=== PATIENT | female | born 1935 | race Caucasian/White ===

== ENCOUNTER 2020-09-16 11:05 | Emergency (ER) | payer MEDICARE, OTHER ==
[~2020-09-16] VITALS: Ht 160 cm; Wt 95.2 kg
[~2020-09-16 11:05] MED LIST: ALBU90OI INH; AZIT250 PO; BENZ100A PO; BUDE6HFA INH; FLUTICASONE 50 MCG INH; GUAI600T33 PO; HYDCHL25 PO; IRBE150 PO; LETR2.5 PO; LEVFLO500 PO; METF500 PO; OMEP20ER PO; Verapamil ER300 MG PO
[2020-09-16] MEDS ORDERED: CELE200 PO (12:45)
[2020-09-16] MEDS ORDERED: LORA10ER PO (12:46)
[2020-09-16] MEDS ORDERED: Benicar40 MG PO (12:47)
[2020-09-16] MEDS ORDERED: BACL10 PO (12:49)
[2020-09-16 12:50] LABS: BASOPHILS ABSOLUTE AUTO 0.03 K/mm3 (0.00-0.23); BASOPHILS PERCENT AUTO 0 % (0-2); EOSINOPHILS ABSOLUTE AUTO 0.19 K/mm3 (0.00-0.68); EOSINOPHILS PERCENT AUTO 3 % (0-6); Hematocrit 36.1 % (33.0-51.0); Hemoglobin 12.5 g/dL (11.5-16.0); IMMATURE GRAN ABSOLUTE AUTO 0.02 K/mm3 (0.00-0.10); IMMATURE GRAN PERCENT AUTO 0 % (0-1); LYMPHOCYTES ABSOLUTE AUTO 2.27 K/mm3 (0.84-5.20); LYMPHOCYTES PERCENT AUTO 30 % (21-46); MONOCYTES ABSOLUTE AUTO 0.63 K/mm3 (0.16-1.47); MONOCYTES PERCENT AUTO 8 % (4-13); Mean Corpuscular HGB 30.6 pg (26.0-34.0); Mean Corpuscular HGB Conc 34.6 g/dL (31.5-36.5); Mean Corpuscular Volume 89 fL (80-100); Mean Platelet Volume 9.3 fL (9.1-12.4); NEUTROPHILS ABSOLUTE AUTO 4.42 K/mm3 (1.96-9.15); NEUTROPHILS PERCENT AUTO 59 % (41-73); Platelet Count 290 K/mm3 (150-400); RDW Coefficient Variation 12.5 % (11.7-14.2); RDW Standard Deviation 40.6 fL (35.1-46.3); Red Blood Cell Count 4.08 M/mm3 (3.80-5.20); White Blood Cell Count 7.56 K/mm3 (4.00-11.30)
[2020-09-16] MEDS ORDERED: PROBIOTIC1 EA13 PO (12:50)
[2020-09-16] MEDS ORDERED: MAGNESIUM GLU27.5 M1 PO (12:50)
[2020-09-16] MEDS ORDERED: MELATONIN5 M1 PO (12:51)
[2020-09-16] MEDS ORDERED: CO Q10100 MG PO (12:51)
[2020-09-16 13:07] LABS: Alanine Aminotransfer (ALT/SGP 36 U/L (12-78); Albumin, Blood 3.8 g/dL (3.4-5.0); Alk Phos 56 U/L (50-136); Anion Gap 9 mmol/L (6-16); Aspartate Aminotrans (AST/SGOT 20 U/L (12-37); Bilirubin, Total 0.5 mg/dL (0.1-1.0); Blood Urea Nitrogen 25 mg/dL (8-24); Bun/Creatinine Ratio 34.6 (12.0-20.0); CO2, Blood 25 mmol/L (21-32); Calcium, Blood 9.4 mg/dL (8.5-10.1); Chloride, Blood 98 mmol/L (98-108); Creatinine, Blood 0.72 mg/dL (0.40-1.00); Globulin, Blood 3.8 g/dL (2.2-4.0); Glomerular Filtration Rate >60 (60-); Glucose, Blood 167 mg/dL (70-99); Potassium, Blood 4.6 mmol/L (3.5-5.5); Sodium, Blood 132 mmol/L (136-145); Total Protein, Blood 7.6 g/dL (6.4-8.2); Troponin I <0.015 ng/mL (0.000-0.040)
== END 2020-09-16 13:59 | disposition home or self-care (01) ==
LOC: ER 11:05
PROVIDERS: Emergency Medicine
DX: I10 Essential (primary) hypertension (principal); K21.9 Gastro-esophageal reflux disease without esophagitis; Z88.2 Allergy status to sulfonamides; Z88.7 Allergy status to serum and vaccine; Z79.899 Other long term (current) drug therapy
CPT/HCPCS: 36415; 80053; 84484; 85025; 93005; 93010; 99284-25

== ENCOUNTER 2020-10-20 12:37 | Emergency (ER) | payer MEDICARE, OTHER ==
[~2020-10-20] VITALS: Ht 160 cm; Wt 90.7 kg
[~2020-10-20 12:37] MED LIST changes: +BACL10 PO; +Benicar40 MG PO; +CELE200 PO; +CO Q10100 MG PO; +LORA10ER PO; +MAGNESIUM GLU27.5 M1 PO; +MELATONIN5 M1 PO; +PROBIOTIC1 EA13 PO
[2020-10-20 13:40] LABS: BASOPHILS ABSOLUTE AUTO 0.04 K/mm3 (0.00-0.23); BASOPHILS PERCENT AUTO 1 % (0-2); EOSINOPHILS ABSOLUTE AUTO 0.34 K/mm3 (0.00-0.68); EOSINOPHILS PERCENT AUTO 4 % (0-6); Hematocrit 36.1 % (33.0-51.0); Hemoglobin 12.3 g/dL (11.5-16.0); IMMATURE GRAN ABSOLUTE AUTO 0.02 K/mm3 (0.00-0.10); IMMATURE GRAN PERCENT AUTO 0 % (0-1); LYMPHOCYTES ABSOLUTE AUTO 2.97 K/mm3 (0.84-5.20); LYMPHOCYTES PERCENT AUTO 38 % (21-46); MONOCYTES ABSOLUTE AUTO 0.64 K/mm3 (0.16-1.47); MONOCYTES PERCENT AUTO 8 % (4-13); Mean Corpuscular HGB 29.8 pg (26.0-34.0); Mean Corpuscular HGB Conc 34.1 g/dL (31.5-36.5); Mean Corpuscular Volume 87 fL (80-100); Mean Platelet Volume 9.3 fL (9.1-12.4); NEUTROPHILS ABSOLUTE AUTO 3.87 K/mm3 (1.96-9.15); NEUTROPHILS PERCENT AUTO 49 % (41-73); Platelet Count 323 K/mm3 (150-400); RDW Coefficient Variation 12.8 % (11.7-14.2); RDW Standard Deviation 41.2 fL (35.1-46.3); Red Blood Cell Count 4.13 M/mm3 (3.80-5.20); White Blood Cell Count 7.88 K/mm3 (4.00-11.30)
[2020-10-20 14:02] LABS: Alanine Aminotransfer (ALT/SGP 37 U/L (12-78); Albumin/Globulin Ratio 1.1 (0.8-1.8); Alk Phos 53 U/L (50-136); Anion Gap 6 mmol/L (6-16); Aspartate Aminotrans (AST/SGOT 31 U/L (12-37); Bilirubin, Total 0.5 mg/dL (0.1-1.0); Blood Urea Nitrogen 24 mg/dL (8-24); Bun/Creatinine Ratio 27.6 (12.0-20.0); CO2, Blood 28 mmol/L (21-32); Calcium, Blood 9.5 mg/dL (8.5-10.1); Chloride, Blood 95 mmol/L (98-108); Creatinine, Blood 0.87 mg/dL (0.40-1.00); Globulin, Blood 3.6 g/dL (2.2-4.0); Glomerular Filtration Rate >60 (60-); Glucose, Blood 132 mg/dL (70-99); Potassium, Blood 4.9 mmol/L (3.5-5.5); Sodium, Blood 129 mmol/L (136-145); Total Protein, Blood 7.6 g/dL (6.4-8.2)
== END 2020-10-20 17:03 | disposition home or self-care (01) ==
LOC: ER 12:37
PROVIDERS: Physician Assistant
DX: I11.0 Hypertensive heart disease with heart failure (principal); I50.9 Heart failure, unspecified; K21.9 Gastro-esophageal reflux disease without esophagitis; Z79.84 Long term (current) use of oral hypoglycemic drugs; Z87.891 Personal history of nicotine dependence
CPT/HCPCS: 36415; 71046; 80053; 83880; 84484; 85025; 93005; 93010; 99284-25

== ENCOUNTER 2021-06-03 09:15 | Emergency (ER) | payer MEDICARE, OTHER ==
[~2021-06-03] VITALS: Ht 160 cm; Wt 95.2 kg
[~2021-06-03 09:15] MED LIST changes: +ACET500 PO; +AMLO10 PO; +APAP500 MG PO; +ASCO500 PO; +ASPI81CH PO; +B-COMPLEX WITH1 EAC2 PO; +CARV25 PT; +FERROUS GLUCON324 M7 PO; +FOLI1 PO; +GLIP5 PO; +HYDR100 PO; +ISOSORBIDE MONO30 MG PO; +MAGNESIUM OXID500 MG PO; +METO25ER PO; +MONT10T PO; +Midodrine HCl2.5 MG PO; +POTASSIUM GLUC500 M1 PO; +TICA90TA PO; +TORS10 PO; +VITAMIN D5000 UNIT PO
== END 2021-06-03 11:55 | disposition home or self-care (01) ==
LOC: ER 09:15
DX: S01.112A Laceration without foreign body of left eyelid and periocular area, initial encounter (principal); I11.0 Hypertensive heart disease with heart failure; I50.9 Heart failure, unspecified; J44.9 Chronic obstructive pulmonary disease, unspecified; E11.9 Type 2 diabetes mellitus without complications; Z88.2 Allergy status to sulfonamides; Z88.7 Allergy status to serum and vaccine; Z79.899 Other long term (current) drug therapy; Z79.82 Long term (current) use of aspirin; Z79.84 Long term (current) use of oral hypoglycemic drugs; W01.0XXA Fall on same level from slipping, tripping and stumbling without subsequent striking against object, initial encounter; Y92.000 Kitchen of unspecified non-institutional (private) residence as the place of occurrence of the external cause
CPT/HCPCS: 12013; 70450; 99284-25

== ENCOUNTER → 2021-06-09 | Outpatient (CLI) | payer MEDICARE, OTHER ==
[2021-06-09 20:31] LABS: BASOPHILS ABSOLUTE AUTO 0.03 K/mm3 (0.00-0.23); BASOPHILS PERCENT AUTO 1 % (0-2); EOSINOPHILS ABSOLUTE AUTO 0.44 K/mm3 (0.00-0.68); EOSINOPHILS PERCENT AUTO 7 % (0-6); Hematocrit 32.4 % (33.0-51.0); Hemoglobin 10.8 g/dL (11.5-16.0); IMMATURE GRAN ABSOLUTE AUTO 0.02 K/mm3 (0.00-0.10); IMMATURE GRAN PERCENT AUTO 0 % (0-1); LYMPHOCYTES ABSOLUTE AUTO 1.59 K/mm3 (0.84-5.20); LYMPHOCYTES PERCENT AUTO 26 % (21-46); MONOCYTES ABSOLUTE AUTO 0.63 K/mm3 (0.16-1.47); MONOCYTES PERCENT AUTO 10 % (4-13); Mean Corpuscular HGB 28.5 pg (26.0-34.0); Mean Corpuscular HGB Conc 33.3 g/dL (31.5-36.5); Mean Corpuscular Volume 86 fL (80-100); Mean Platelet Volume 9.9 fL (9.1-12.4); NEUTROPHILS ABSOLUTE AUTO 3.49 K/mm3 (1.96-9.15); NEUTROPHILS PERCENT AUTO 56 % (41-73); Platelet Count 358 K/mm3 (150-400); RDW Coefficient Variation 13.8 % (11.7-14.2); RDW Standard Deviation 42.6 fL (35.1-46.3); Red Blood Cell Count 3.79 M/mm3 (3.80-5.20)
[2021-06-09 20:56] LABS: Alanine Aminotransfer (ALT/SGP 102 U/L (12-78); Albumin, Blood 2.9 g/dL (3.4-5.0); Albumin/Globulin Ratio 0.7 (0.8-1.8); Alk Phos 68 U/L (50-136); Anion Gap 11 mmol/L (6-16); Aspartate Aminotrans (AST/SGOT 49 U/L (12-37); Bilirubin, Total 0.4 mg/dL (0.1-1.0); Blood Urea Nitrogen 30 mg/dL (8-24); Bun/Creatinine Ratio 27.3 (12.0-20.0); CHOL/HDL RATIO 7.6; CO2, Blood 26 mmol/L (21-32); Calcium, Blood 9.3 mg/dL (8.5-10.1); Chloride, Blood 95 mmol/L (98-108); Cholesterol 212 mg/dL (50-200); Glomerular Filtration Rate 47 (60-); Glucose, Blood 228 mg/dL (70-99); HDL Cholesterol 28 mg/dL (>39); Low Density Lipoprotein Chol 112 mg/dL (0-110); Potassium, Blood 3.5 mmol/L (3.5-5.5); Sodium, Blood 132 mmol/L (136-145); Total Protein, Blood 6.9 g/dL (6.4-8.2); Triglycerides 359 mg/dL (30-160); Very Low Density Lipoprot Chol 71 mg/dL (6-32)
== END | disposition home or self-care (01) ==
LOC: LAB HH 19:43
PROVIDERS: Family Medicine
DX: I10 Essential (primary) hypertension (principal); E11.9 Type 2 diabetes mellitus without complications; E78.5 Hyperlipidemia, unspecified
CPT/HCPCS: 80053; 80061; 83036; 84443; 85025

== ENCOUNTER 2021-11-04 08:20 | Inpatient (IN) | payer MEDICARE, OTHER ==
[~2021-11-04] VITALS: Ht 160 cm; Wt 88.4 kg
[~2021-11-04 08:20] MED LIST changes: +B-COMPLEX WITH1 EACH PO; +LISI5 PO; +METFORMIN HCL500 M2 PO
[2021-11-04 08:43] LABS: Base Excess Venous -3.8 mmol/L; Bicarbonate Venous 21.3 mmol/L (24.0-30.0); PCO2 Venous 47.1 mmHg (38-42); PO2 Venous 74.6 mmHg (38-42); pH Blood Venous 7.29 (7.34-7.37)
[2021-11-04 08:45] LABS: BASOPHILS ABSOLUTE AUTO 0.03 K/mm3 (0.00-0.23); BASOPHILS PERCENT AUTO 0 % (0-2); EOSINOPHILS ABSOLUTE AUTO 0.04 K/mm3 (0.00-0.68); EOSINOPHILS PERCENT AUTO 0 % (0-6); Hematocrit 21.4 % (33.0-51.0); IMMATURE GRAN ABSOLUTE AUTO 0.04 K/mm3 (0.00-0.10); IMMATURE GRAN PERCENT AUTO 0 % (0-1); LYMPHOCYTES ABSOLUTE AUTO 1.96 K/mm3 (0.84-5.20); LYMPHOCYTES PERCENT AUTO 16 % (21-46); MONOCYTES ABSOLUTE AUTO 0.59 K/mm3 (0.16-1.47); MONOCYTES PERCENT AUTO 5 % (4-13); Mean Corpuscular HGB 29.9 pg (26.0-34.0); Mean Corpuscular HGB Conc 32.7 g/dL (31.5-36.5); Mean Corpuscular Volume 92 fL (80-100); Mean Platelet Volume 9.4 fL (9.1-12.4); NEUTROPHILS ABSOLUTE AUTO 9.38 K/mm3 (1.96-9.15); NEUTROPHILS PERCENT AUTO 78 % (41-73); Platelet Count 381 K/mm3 (150-400); RDW Coefficient Variation 13.8 % (11.7-14.2); RDW Standard Deviation 45.4 fL (35.1-46.3); Red Blood Cell Count 2.34 M/mm3 (3.80-5.20); White Blood Cell Count 12.04 K/mm3 (4.00-11.30)
[2021-11-04 09:11] LABS: Albumin, Blood 3.1 g/dL (3.4-5.0); Bilirubin, Total 0.7 mg/dL (0.1-1.0); Bun/Creatinine Ratio 38.6 (12.0-20.0); Calcium, Blood 8.2 mg/dL (8.5-10.1); Creatinine, Blood 0.78 mg/dL (0.40-1.00); Globulin, Blood 3.2 g/dL (2.2-4.0); Magnesium, Blood 1.6 mg/dL (1.6-2.4); Potassium, Blood 4.9 mmol/L (3.5-5.5); Total Protein, Blood 6.3 g/dL (6.4-8.2)
[2021-11-04 09:26] LABS: Influenza A, PCR NEGATIVE (NEGATIVE); Influenza B, PCR NEGATIVE (NEGATIVE); Resp Syncytial Virus, PCR NEGATIVE (NEGATIVE); SARS-Cov-2 (COVID-19) PCR, MMC NEGATIVE (NEGATIVE)
--- NOTE | 2021-11-04 13:10 | NUR ---
PT ADMITTED TO ICU 10 FROM ER. PT COMES UP ON BIPAP 13/5 FIO2 25%. SPO2 IN THE 90'S. PT LIKES THE BIPAP TO HELP WITH WOB. GETS SOB WITH EXERTION. HAS ONE UNIT OF PRBC'S RUNNING AT 100ML/HR. LS DIM WITH CRACKLES IN BASES. BNP OVER 1200. PT WILL GET A DOSE OF LASIX AFTER UNIT OF BLOOD. STATES SHE HAS 7/10 SHARP PAIN TO LUQ. TROPONIN ELEVATED. DR. MABRY HERE TO SEE PT. EKG DONE AND HANDED TO DR. MABRY. DR. MABRY EVALUATED PT AND BELIEVES CARDIAC PRESENTATION IS RELATED TO GI BLEED AND ANEMIA. DR. ALEGRIA WAS CONSULTED BY ER. PT IS NOW HYPERTENSIVE. A/O X4. USES CALL LIGHT APPROPRIATELY. NO SIGN OF DISTRESS AT THE MOMENT.
[2021-11-04 16:14] LABS: Hematocrit 25.9 % (33.0-51.0); Hemoglobin 8.8 g/dL (11.5-16.0)
--- NOTE | 2021-11-04 17:59 | NUR ---
SUMMARY PT RESTING IN BED. A/O X4. SINCE BLOOD TRANSFUSION PT HAS DENIES LUQ PAIN. H&H STABLE AT LAST DRAW. NO N/V. PT HAD A MEDIUM MAROON SEMI LOOSE BM ON BSC. PT DENIES DIZZINESS WITH ACTIVITY. SOB SEEMS TO BE IMPROVED AND DOES NOT DESAT WITH ACTIVITY. PT IS ONE PERSON MINIMAL ASSIST TO BSC. USES CALL LIGHT APPROPRIATELY. DR. MABRY BELIEVES CARDIAC PRESENTATION IS D/T ANEMIA. AWAITING DR. ALEGRIA'S CONSULTATION. NO SIGN OF DISTRESS AT THE MOMENT. CALL LIGHT IN REACH.
--- NOTE | 2021-11-04 19:33 | NUR ---
CALLED [facility], [facility], [facility], [facility], [facility], [facility] AND [facility] TO TRY TO GET THIS PT TRANSFERRED. ALL FACILITIES ARE AT MAX CAPACITY AND NOT TAKING TRANSFERS AT THIS TIME. DR. VERENICE APODACA.
--- NOTE | 2021-11-04 21:45 | NUR ---
PT HAD A 24 BEAT RUN OF VENTRICULAR TACHYCARDIA, ASYMPTOMATIC. SHE HAS ALSO BEEN HYPERTENSIVE. SPOKE TO DR CALDERA. ORDERS GIVEN FOR PT HOME DOSE OF TOPROL AND 2G MAGNESIUM.
--- NOTE | 2021-11-04 22:30 | NUR ---
PT UNABLE TO VOID. REYNA CATHETER PLACED USING STERILE TECHNIQUE. PT HAD 350 OF CLEAR YELLOW URINE OUT W/PLACEMENT. PT TOLERATED PROCEDURE WELL.
[2021-11-05 04:21] LABS: Hemoglobin 8.2 g/dL (11.5-16.0); Mean Corpuscular HGB 29.8 pg (26.0-34.0); Mean Corpuscular HGB Conc 34.2 g/dL (31.5-36.5); Mean Platelet Volume 9.3 fL (9.1-12.4); Platelet Count 321 K/mm3 (150-400); RDW Coefficient Variation 14.6 % (11.7-14.2); RDW Standard Deviation 45.6 fL (35.1-46.3); Red Blood Cell Count 2.75 M/mm3 (3.80-5.20)
[2021-11-05 04:24] LABS: Mean Corpuscular Volume 87 fL (80-100)
[2021-11-05 04:49] LABS: Bun/Creatinine Ratio 37.9 (12.0-20.0); Calcium, Blood 9.1 mg/dL (8.5-10.1); Creatinine, Blood 1.03 mg/dL (0.40-1.00); Potassium, Blood 4.3 mmol/L (3.5-5.5)
[2021-11-05 06:07] LABS: Source, Urine Foley catheter
--- NOTE | 2021-11-05 06:08 | NUR ---
SHIFT SUMMERY PT IS ALERT AND ORIENTED, VSS W/NO ACTIVE BLEEDING OVERNIGHT. PROTONIX DRIP INFUSING. PT HAS NO HAD NO COMPLAINTS OF CHEST PAIN/PRESSURE DURING THIS SHIFT.
[2021-11-05 06:23] LABS: Appearance, Urine Hazy (Clear); Bilirubin, Urine Neg (Neg); Blood, Urine 1+ (Neg); Color, Urine Yellow (P-Yellow); Glucose Qualitative, Urine 3+ (Neg); Ketones, Urine 1+ (Neg); Leukocyte Esterase, Urine 3+ (Neg); Nitrite, Urine Neg (Neg); Protein, Urine Neg (Neg); Urobilinogen, Urine NORM (Normal)
[2021-11-05 06:50] LABS: Bacteria Many /hpf; Red Blood Cells, Urine 0-2 /hpf (0-2); Squamous Epithelial Cells Few /hpf (Few); White Blood Cells, Urine 25-50 /hpf (0-5)
[2021-11-05] MEDS ORDERED: BACL10 PO (13:54)
[2021-11-05] MEDS ORDERED: CELE200 PO (13:58)
[2021-11-05] MEDS ORDERED: Vitamin D1000 UNI1 PO (13:59)
[2021-11-05] MEDS ORDERED: LORA10ER PO (14:00)
[2021-11-05] MEDS ORDERED: HYDR100 PO (14:00)
[2021-11-05] MEDS ORDERED: LOSA50 PO (14:01)
[2021-11-05] MEDS ORDERED: MIDO5 PO (14:02)
[2021-11-05] MEDS ORDERED: REPATHA SU140 MG/1 M SC (14:04)
--- NOTE | 2021-11-05 18:31 | NUR ---
SUMMARY PT A/O X4. DENIES PAIN OR N/V TODAY. HAS NOT HAD BM TODAY. ON 3L NC. ABLE TO GET UP TO CHAIR WITHOUT ISSUE. DR. ALEGRIA IN TO SEE PT TODAY. PT ADVANCED TO ADA CARDIAC DIET. TOLERATING MEALS. NO SIGN OF DISTRESS. MONITORING PT UNTIL SCOPE TEAM IS AVAILABLE OR A TRANSFER BED IS AVAILABLE. PT WOULD PREFER TO STAY IN [place].
[2021-11-06 04:22] LABS: Hematocrit 23.4 % (33.0-51.0); Hemoglobin 7.6 g/dL (11.5-16.0); Mean Corpuscular HGB 29.3 pg (26.0-34.0); Mean Corpuscular HGB Conc 32.5 g/dL (31.5-36.5); Mean Corpuscular Volume 90 fL (80-100); Mean Platelet Volume 9.1 fL (9.1-12.4); Platelet Count 302 K/mm3 (150-400); RDW Standard Deviation 48.3 fL (35.1-46.3); Red Blood Cell Count 2.59 M/mm3 (3.80-5.20); White Blood Cell Count 8.92 K/mm3 (4.00-11.30)
[2021-11-06 04:32] LABS: Bun/Creatinine Ratio 33.3 (12.0-20.0); Calcium, Blood 8.9 mg/dL (8.5-10.1); Creatinine, Blood 1.14 mg/dL (0.40-1.00)
--- NOTE | 2021-11-06 05:52 | NUR ---
SHIFT SUMMERY PT IS ALERT AND ORIENTED X4, PLEASANT-ABLE TO MAKE NEEDS KNOWN. SHE HAS HAD NO BM/N/V THIS SHIFT. SHE HAS HAD NO COMPLAINTS OF CHEST PAIN/PRESSURE. NO ACUTE CHANGES OVERNIGHT.
--- NOTE | 2021-11-06 09:08 | NUR ---
DR. MABRY IN TO SEE PT. HE WANTS PT TO BE ON BETA DM AND DIURETIC D/T CARDIAC HX BUT PT HAS BEEN HYPOTENSIVE. ONE UNIT OF PRBC'S ORDERED.
--- NOTE | 2021-11-06 17:38 | NUR ---
SUMMARY PT A/O X4. DENIES CP OR PRESSURE ALL DAY. UP TO CHAIR WITH STANDBY ASSIST. PT GOT ONE UNIT OF PRBC'S TO HELP BRING HER BP UP. AFTER ONE UNIT OF PRBC'S PT WAS ABLE TO TAKE METOPROLOL AND TORSEMIDE PER DR. MABRY. BP HAS IMPROVED, SEE VS FLOWSHEET. NO BM TODAY. PT HAS TOLERATED ALL MEALS. WILL START CLEAR LIQUID DIET IN AM INCASE SHE IS ABLE TO GET AN EGD DONE. THERE IS A POSSIBILITY A GI DOC WILL BE AVAILABLE TOMORROW BUT WE WON'T KNOW UNTIL TOMORROW. NO SIGN OF DISTRESS.
--- NOTE | 2021-11-06 22:55 | NUR ---
TRANSFER OF CARE: REPORT GIVEN TO ANAMARIA BARNEY AT 2140. PATIENT TRANSFERRED BY BED TO PCU 10. PATIENT TRANSFERRED WITH 1 PERSON ASSIST TO PCU BED.
[2021-11-07 04:26] LABS: Hematocrit 26.2 % (33.0-51.0); Hemoglobin 8.7 g/dL (11.5-16.0); Mean Corpuscular HGB 29.5 pg (26.0-34.0); Mean Corpuscular HGB Conc 33.2 g/dL (31.5-36.5); Mean Corpuscular Volume 89 fL (80-100); Platelet Count 284 K/mm3 (150-400); RDW Coefficient Variation 15.6 % (11.7-14.2); Red Blood Cell Count 2.95 M/mm3 (3.80-5.20); White Blood Cell Count 7.47 K/mm3 (4.00-11.30)
[2021-11-07 05:03] LABS: Bun/Creatinine Ratio 33.3 (12.0-20.0); Calcium, Blood 8.6 mg/dL (8.5-10.1); Creatinine, Blood 1.02 mg/dL (0.40-1.00); Potassium, Blood 3.8 mmol/L (3.5-5.5)
--- NOTE | 2021-11-07 06:12 | NUR ---
SHIFT SUMMARY Assumed care of pt around 2200 as ICU xfer, I agree with previous RN's assessment. A/Ox4. Large BP discrepancy between L and R arms, L SBP 70-90, while at the same time the R SBP 120-140. Able to transfer from bed to bed with minimal assistance. Maintains over 95% on 3L NC (2L NC baseline). LS coarse RUL and clear t/o rest. Minimal dyspnea with exertion. NSR on tele in 80's. Strong +2 pulses t/o. 1+ pitting edema BLE. Mild abdominal distention, firm in nature with hypoactive bowel tones. No bloody stools this shift. Flores draining cloudy yellow urine. Patient has been on clears in the event she can get a scope today. Will report to dayshift RN.
--- NOTE | 2021-11-07 17:26 | NUR ---
SHIFT SUMMARY PT HAS BEEN RESTING IN ROOM AND NAPPED AROUND MIDDAY. PT HAS EXPRESSED SOME FRUSTRATION OVER CURRENT DIET ORDERS. PT HAS STATED THAT THEY WILL CONTINUE TO COMPLY WITH CURRENT PLAN OF CARE. ALL VITALS HAVE BEEN STABLE. PT HAS DENIED C/O PAIN OR DISCOMFORT. PT HAS BEEN ABLE TO REPOSITION SELF IN BED. PT IS HOPEFUL THAT HEMOGLOBIN WILL HOLD SO THAT THEY MAY DISCHARGE AND FOLLOW-UP AN OUTPATIENT.
[2021-11-08 04:34] LABS: Hemoglobin 9.1 g/dL (11.5-16.0); Mean Corpuscular HGB 29.1 pg (26.0-34.0); Mean Corpuscular HGB Conc 32.5 g/dL (31.5-36.5); Mean Corpuscular Volume 90 fL (80-100); Mean Platelet Volume 9.1 fL (9.1-12.4); Platelet Count 287 K/mm3 (150-400); RDW Coefficient Variation 15.1 % (11.7-14.2); RDW Standard Deviation 47.4 fL (35.1-46.3); Red Blood Cell Count 3.13 M/mm3 (3.80-5.20); White Blood Cell Count 7.88 K/mm3 (4.00-11.30)
[2021-11-08 05:00] LABS: Bun/Creatinine Ratio 31.7 (12.0-20.0); Calcium, Blood 8.8 mg/dL (8.5-10.1); Creatinine, Blood 1.01 mg/dL (0.40-1.00); Potassium, Blood 3.8 mmol/L (3.5-5.5)
--- NOTE | 2021-11-08 05:51 | NUR ---
SHIFT SUMMARY Patient was moved from room PCU 10 to 7. Reports no pain, CP/pressure. VSS. Maintains over 95% on 1L NC. SR on tele 80's. No acute changes overnight. Will report to dayshift RN.
[2021-11-08] MEDS ORDERED: LEVFLO500 PO (11:43)
--- NOTE | 2021-11-08 14:50 | NUR ---
DISCHARGE SUMMARY PT WAS TRANSPORTED BY WHEELCHAIR TO PRIVATE VEHICLE. DISCHARGE TEACHING WAS GIVEN TO PT AND SPOUSE. ALL PERSONAL BELONGINGS AND DISCHARGE INSTRUCTIONS WERE IN PT'S POSSESSION AT TIME OF DISCHARGE. ALL QUESTIONS AND CONCERNS WERE ADDRESSED PRIOR TO DISCHARGE. PT IS AWARE OF THEIR APPOINTMENT WITH GASTROENTEROLOGY THAT WAS MADE PRIOR TO DISCHARGE.
== END 2021-11-08 14:17 | disposition home health service (06) | DRG 377 ==
LOC: ER 08:20 → ICUW 10:36 → PCU 11-06 22:06
PROVIDERS: Internal Medicine; Student in an Organized Health Care Education/Training Program; ADMIT Internal Medicine
PROC: 30233N1 Transfusion of Nonautologous Red Blood Cells into Peripheral Vein, Percutaneous Approach (ICD-10-PCS; principal; 2021-11-04)
DX: K92.1 Melena (principal); I21.A1 Myocardial infarction type 2; I50.43 Acute on chronic combined systolic (congestive) and diastolic (congestive) heart failure; J96.21 Acute and chronic respiratory failure with hypoxia; R57.8 Other shock; D62 Acute posthemorrhagic anemia; I42.8 Other cardiomyopathies; E87.4 Mixed disorder of acid-base balance; Z20.822 Contact with and (suspected) exposure to COVID-19; E78.5 Hyperlipidemia, unspecified; I25.10 Atherosclerotic heart disease of native coronary artery without angina pectoris; K21.9 Gastro-esophageal reflux disease without esophagitis; D50.9 Iron deficiency anemia, unspecified; I11.0 Hypertensive heart disease with heart failure; I50.83 High output heart failure; E11.9 Type 2 diabetes mellitus without complications; Z95.5 Presence of coronary angioplasty implant and graft; Z88.2 Allergy status to sulfonamides; Z88.7 Allergy status to serum and vaccine; Z79.4 Long term (current) use of insulin; Z87.891 Personal history of nicotine dependence; Z90.12 Acquired absence of left breast and nipple; Z85.3 Personal history of malignant neoplasm of breast; Z86.010 Personal history of colon polyps; Z79.899 Other long term (current) drug therapy
CPT/HCPCS: 0241U; 36415; 36430; 51703; 71045; 80048; 80053; 81001; 82272; 82803; 82947; 83735; 83880; 84484; 85014; 85018; 85025; 85027; 86850; 86900; 86901; 86923; 87077; 87086; 87186; 93005; 93010; 94640; 94660; 94664; 94760; 94762; 96365; 96366; 96375; 96376; 99285-25; A9270; C9113; J0696; J1815; J1940; J2930; J3475; J7030; J7040; P9016

== ENCOUNTER 2021-12-04 11:34 | Emergency (ER) | payer MEDICARE, OTHER ==
[~2021-12-04] VITALS: Ht 160 cm; Wt 87.1 kg
[~2021-12-04 11:34] MED LIST changes: +LOSA50 PO; +MIDO5 PO; +REPATHA SU140 MG/1 M SC; +Vitamin D1000 UNI1 PO
[2021-12-04 13:05] LABS: BASOPHILS ABSOLUTE AUTO 0.03 K/mm3 (0.00-0.23); BASOPHILS PERCENT AUTO 0 % (0-2); EOSINOPHILS PERCENT AUTO 1 % (0-6); Hematocrit 31.1 % (33.0-51.0); IMMATURE GRAN ABSOLUTE AUTO 0.01 K/mm3 (0.00-0.10); IMMATURE GRAN PERCENT AUTO 0 % (0-1); LYMPHOCYTES PERCENT AUTO 16 % (21-46); MONOCYTES PERCENT AUTO 10 % (4-13); Mean Corpuscular HGB 28.2 pg (26.0-34.0); Mean Corpuscular HGB Conc 32.2 g/dL (31.5-36.5); Mean Corpuscular Volume 88 fL (80-100); Mean Platelet Volume 9.3 fL (9.1-12.4); NEUTROPHILS ABSOLUTE AUTO 4.96 K/mm3 (1.96-9.15); NEUTROPHILS PERCENT AUTO 72 % (41-73); Platelet Count 245 K/mm3 (150-400); RDW Coefficient Variation 14.9 % (11.7-14.2); RDW Standard Deviation 47.9 fL (35.1-46.3); Red Blood Cell Count 3.54 M/mm3 (3.80-5.20)
[2021-12-04 13:20] LABS: Albumin, Blood 3.7 g/dL (3.4-5.0); Albumin/Globulin Ratio 1.2 (0.8-1.8); Bilirubin, Total 0.7 mg/dL (0.1-1.0); Bun/Creatinine Ratio 29.4 (12.0-20.0); Calcium, Blood 9.4 mg/dL (8.5-10.1); Creatinine, Blood 0.95 mg/dL (0.40-1.00); Globulin, Blood 3.2 g/dL (2.2-4.0); Total Protein, Blood 6.9 g/dL (6.4-8.2)
[2021-12-04] MEDS ORDERED: BUME2 PO (18:14)
== END 2021-12-04 18:45 | disposition home or self-care (01) ==
LOC: ER 11:34
PROVIDERS: Physician Assistant
DX: I11.0 Hypertensive heart disease with heart failure (principal); I50.22 Chronic systolic (congestive) heart failure; I25.10 Atherosclerotic heart disease of native coronary artery without angina pectoris; J44.9 Chronic obstructive pulmonary disease, unspecified; E11.9 Type 2 diabetes mellitus without complications; K21.9 Gastro-esophageal reflux disease without esophagitis; Z79.84 Long term (current) use of oral hypoglycemic drugs; Z99.81 Dependence on supplemental oxygen; Z88.2 Allergy status to sulfonamides; Z88.7 Allergy status to serum and vaccine; Z79.899 Other long term (current) drug therapy
CPT/HCPCS: 36415; 71046; 80053; 83690; 83880; 84484; 85025; 93005; 93010; J1940

== ENCOUNTER → 2022-05-24 | Outpatient (CLI) | payer MEDICARE, OTHER ==
[~2022-05-24] MED LIST changes: +BUME2 PO
[2022-05-24 12:30] LABS: Creatinine, Urine Random 33.7 mg/dL (27.00-270.00); Protein, Urine Random 18.3 mg/dL (0.0-11.9); Protein/Creat Ratio, Ur Random 0.5
[2022-05-24 12:39] LABS: Creatinine Urine 33.1 mg/dL (27.00-270.00); Microalbumin, Urine Quant. 45.8 mg/L (0.000-20.000); Protein, Urine Quantitative 17.7 mg/dL (0.0-11.9)
== END ==
LOC: LAB FUT 05-18 12:35 → LAB 08:45 → LAB SHORT 08:45
PROVIDERS: Internal Medicine Nephrology
DX: N17.9 Acute kidney failure, unspecified (principal); I12.9 Hypertensive chronic kidney disease with stage 1 through stage 4 chronic kidney disease, or unspecified chronic kidney disease; E11.22 Type 2 diabetes mellitus with diabetic chronic kidney disease; I70.1 Atherosclerosis of renal artery; N18.30 Chronic kidney disease, stage 3 unspecified; D63.1 Anemia in chronic kidney disease; R76.8 Other specified abnormal immunological findings in serum; R94.5 Abnormal results of liver function studies; R94.6 Abnormal results of thyroid function studies; D51.8 Other vitamin B12 deficiency anemias; D52.8 Other folate deficiency anemias
CPT/HCPCS: 81050; 82043; 82570; 84156

== ENCOUNTER 2022-10-05 10:32 | Inpatient (IN) | payer MEDICARE, OTHER ==
[~2022-10-05] VITALS: Ht 165.1 cm; Wt 86.0 kg
[2022-10-05] MEDS ORDERED: Aspir 8181 MG PO (11:06)
[2022-10-05] MEDS ORDERED: POTA10T PO (11:08)
[2022-10-05] MEDS ORDERED: TICA90TA PO ×2 (11:08→11:09)
[2022-10-05 11:43] LABS: BASOPHILS ABSOLUTE AUTO 0.03 K/mm3 (0.00-0.23); BASOPHILS PERCENT AUTO 0 % (0-2); EOSINOPHILS ABSOLUTE AUTO 0.16 K/mm3 (0.00-0.68); EOSINOPHILS PERCENT AUTO 2 % (0-6); Hematocrit 26.7 % (33.0-51.0); Hemoglobin 9.1 g/dL (11.5-16.0); IMMATURE GRAN ABSOLUTE AUTO 0.03 K/mm3 (0.00-0.10); IMMATURE GRAN PERCENT AUTO 0 % (0-1); LYMPHOCYTES ABSOLUTE AUTO 2.97 K/mm3 (0.84-5.20); LYMPHOCYTES PERCENT AUTO 28 % (21-46); MONOCYTES ABSOLUTE AUTO 0.77 K/mm3 (0.16-1.47); MONOCYTES PERCENT AUTO 7 % (4-13); Mean Corpuscular HGB 29.8 pg (26.0-34.0); Mean Corpuscular HGB Conc 34.1 g/dL (31.5-36.5); Mean Corpuscular Volume 88 fL (80-100); Mean Platelet Volume 9.2 fL (9.1-12.4); NEUTROPHILS ABSOLUTE AUTO 6.54 K/mm3 (1.96-9.15); NEUTROPHILS PERCENT AUTO 62 % (41-73); Platelet Count 330 K/mm3 (150-400); RDW Coefficient Variation 13.3 % (11.7-14.2); Red Blood Cell Count 3.05 M/mm3 (3.80-5.20)
[2022-10-05 12:02] LABS: Albumin, Blood 3.1 g/dL (3.4-5.0); Albumin/Globulin Ratio 0.8 (0.8-1.8); Bilirubin, Total 0.7 mg/dL (0.1-1.0); Bun/Creatinine Ratio 28.6 (12.0-20.0); Calcium, Blood 8.4 mg/dL (8.5-10.1); Creatinine, Blood 2.13 mg/dL (0.40-1.00); Potassium, Blood 4.7 mmol/L (3.5-5.5); Total Protein, Blood 7.1 g/dL (6.4-8.2)
[2022-10-05 12:10] LABS: Source, Urine Clean Catch
[2022-10-05 12:17] LABS: Appearance, Urine Cloudy (Clear); Bilirubin, Urine Neg (Neg); Blood, Urine 4+ (Neg); Color, Urine Yellow (P-Yellow); Glucose Qualitative, Urine 2+ (Neg); Ketones, Urine Neg (Neg); Leukocyte Esterase, Urine 3+ (Neg); Nitrite, Urine Neg (Neg); Protein, Urine 3+ (Neg); Specific Gravity, Urine 1.015 (1.003-1.022); Urobilinogen, Urine NORM (Normal)
[2022-10-05 12:28] LABS: Bacteria Many /hpf; Squamous Epithelial Cells Few /hpf (Few); White Blood Cells, Urine 25-50 /hpf (0-5)
[2022-10-05 12:29] LABS: Mucus Mod (0-Heavy)
[2022-10-05 14:40] LABS: Albumin, Blood 2.9 g/dL (3.4-5.0); Anion Gap 9 mmol/L (6-16); Blood Urea Nitrogen 64 mg/dL (8-24); Bun/Creatinine Ratio 28.6 (12.0-20.0); CO2, Blood 19 mmol/L (21-32); Calcium, Blood 8.6 mg/dL (8.5-10.1); Chloride, Blood 88 mmol/L (98-108); Creatinine, Blood 2.24 mg/dL (0.40-1.00); Glomerular Filtration Rate 21 (60-); Glucose, Blood 222 mg/dL (70-99); Phosphorus, Blood 3.5 mg/dL (2.5-4.9); Potassium, Blood 4.5 mmol/L (3.5-5.5); Sodium, Blood 116 mmol/L (136-145)
[2022-10-05 15:57] LABS: Potassium, Blood 4.5 mmol/L (3.5-5.5)
[2022-10-05 16:54] VITALS: BP 147/75
[2022-10-05] MEDS ORDERED: Metformin HCl750 MG PO (17:10)
[2022-10-05 18:39] LABS: Potassium, Blood 4.4 mmol/L (3.5-5.5)
--- NOTE | 2022-10-05 19:24 | NUR ---
Shift Summary: Pt arrived to room PCU 5 around 1700. Pt A/O x4. Oriented to room, unit, call light and plan of care. Denies questions. LS clear. BT postive. HR reg. Pulses palp. VSS. Pt states that she is having some cramping in her L ankle but otherwise has no pain. Blister like sores noted to groin and R buttock. Purewick cath in place. Labs were obtained per orders and critical results called to physician with new orders obtained. Report was given to night RN, no other changes since arrival to unit.
[2022-10-05 19:25] VITALS: BP 97/71
--- NOTE | 2022-10-05 20:15 | NUR ---
ASSUMED CARE AT 1900 PATIENT IS ALERT AND ORIENTED X4, CAN BE FORGETFUL AT TIMES. 02 SATS >95% ON RA, DENIES SOB. HR ST 100-110, BP STABLE. PATIENT DENIES CP/PRESSURE. DENIES N/V. PUREWICK IN PLACE, URINE IS CLOUDY YELLOW. PHOTO OF RIGHT BUTTOCKS IN CHART, RED/BLISTER AREA. PATIENT GIVEN 2 GM PO SODIUM TAB PER DR. WOO, ANOTHER 2 GM TO BE GIVEN 2 HOURS AFTER FIRST DOSE AND LABS TO BE RECHECKED AT 2200. CALL LIGHT IN REACH
[2022-10-05 22:44] VITALS: BP 77/62
[2022-10-06 03:54] VITALS: BP 140/110
[2022-10-06 04:04] LABS: BASOPHILS ABSOLUTE AUTO 0.02 K/mm3 (0.00-0.23); BASOPHILS PERCENT AUTO 0 % (0-2); EOSINOPHILS ABSOLUTE AUTO 0.15 K/mm3 (0.00-0.68); EOSINOPHILS PERCENT AUTO 2 % (0-6); Hematocrit 25.2 % (33.0-51.0); Hemoglobin 8.7 g/dL (11.5-16.0); IMMATURE GRAN ABSOLUTE AUTO 0.02 K/mm3 (0.00-0.10); IMMATURE GRAN PERCENT AUTO 0 % (0-1); LYMPHOCYTES PERCENT AUTO 36 % (21-46); MONOCYTES ABSOLUTE AUTO 0.68 K/mm3 (0.16-1.47); MONOCYTES PERCENT AUTO 8 % (4-13); Mean Corpuscular HGB 29.5 pg (26.0-34.0); Mean Corpuscular HGB Conc 34.5 g/dL (31.5-36.5); Mean Corpuscular Volume 85 fL (80-100); Mean Platelet Volume 8.9 fL (9.1-12.4); NEUTROPHILS ABSOLUTE AUTO 4.93 K/mm3 (1.96-9.15); NEUTROPHILS PERCENT AUTO 55 % (41-73); Platelet Count 308 K/mm3 (150-400); RDW Coefficient Variation 13.2 % (11.7-14.2); RDW Standard Deviation 40.8 fL (35.1-46.3); Red Blood Cell Count 2.95 M/mm3 (3.80-5.20)
--- NOTE | 2022-10-06 04:06 | NUR ---
SHIFT SUMMARY PATIENT IS ALERT AND ORIENTED X4. 02 SATS >95% ON RA, DENIES SOB. HR ST 100-115, BP STABLE. PUREWICK IN PLACE, CHANGED THIS SHIFT, CLOUDY YELLOW URINE OUTPUT. REPLACING SODIUM PER DR. WOO, SEE EMAR. INDEPENDENT WITH REPOSIITONING, ASSISTANCE PRN. MEDICATED FOR LLE PAIN, PULSES INTACT AND EXTREMITY WARM TO THE TOUCH. CALL LIGHT IN REACH
[2022-10-06 04:20] LABS: Magnesium, Blood 1.6 mg/dL (1.6-2.4)
[2022-10-06 04:35] LABS: Anion Gap 10 mmol/L (6-16); Blood Urea Nitrogen 67 mg/dL (8-24); Bun/Creatinine Ratio 27.6 (12.0-20.0); CO2, Blood 19 mmol/L (21-32); Calcium, Blood 8.7 mg/dL (8.5-10.1); Chloride, Blood 89 mmol/L (98-108); Creatinine, Blood 2.43 mg/dL (0.40-1.00); Glomerular Filtration Rate 19 (60-); Glucose, Blood 201 mg/dL (70-99); Phosphorus, Blood 3.7 mg/dL (2.5-4.9); Potassium, Blood 4.4 mmol/L (3.5-5.5); Sodium, Blood 118 mmol/L (136-145)
[2022-10-06 07:39] VITALS: BP 131/57
--- NOTE | 2022-10-06 10:11 | NUR ---
ASSUMED CARE: ASSUMED CARE OF PT APPROX 0715. PT IS A&OX4 AND SITTING UP IN CHAIR. O2 SATS >95% ON RA. PT DENIES SOB. HR ST 100-110'S. PT DENIES CP/PRESSURE. BP 130'S SYSTOLIC. PUREWICK IN PLACE DRAINING YELLOW CLOUDY URINE. PT EATING BREAKFAST INDEPENDENTLY. 1000ML FLUID RESTRICTION IN PLACE PER ORDER. PT ABLE TO MAKE NEEDS KNOWN. CALL LIGHT WITHIN REACH. NO FURTHER NEEDS AT THIS TIME.
[2022-10-06 11:49] VITALS: BP 136/79
[2022-10-06 12:45] LABS: Potassium, Blood 4.2 mmol/L (3.5-5.5)
[2022-10-06 13:48] LABS: Ferritin, Serum 246 ng/mL (8-252); Iron Serum 32 ug/dL (50-170); Percent Saturation 11.6 % (15.0-50.0); Total Iron Binding Capacity 277 ug/dL (250-450)
[2022-10-06 15:58] VITALS: BP 147/83
--- NOTE | 2022-10-06 16:40 | NUR ---
PT UPDATE TELE CALLED TO NOTIFY OF PROLONGED QT: .52. CALL PLACED TO MD MOREL. MD MOREL W/ ORDERS FOR EKG AND PHARMACY TO REVIEW MEDICATIONS FOR CAUSES. CALL PLACED TO PHARMACY, PHARMACY STATES NO MEDICATION CONCERNS ON AUG EXCEPT FOR ZOFRAN, THAT HAS NOT BEEN GIVEN. EKG IN PROGRESS.
--- NOTE | 2022-10-06 17:41 | NUR ---
SHIFT SUMMARY: PT A&OX4 THROUGHOUT SHIFT. HR MOSTLY 100-110'S, ST. SBP 130-140'S. PT DENIES CP/PRESSURE. O2 SATS >95% ON RA AT REST. PT REPORTS SOB WITH EXERTION. O2 SATS DECREASED TO 89-94% WITH EXERTION. QUICKLY IMPROVED WITH REST. PUREWICK IN PLACE DRAINING YELLOW CLOUDY URINE WITH SEDIMENT. UNASYN STARTED PER EMAR. LEFT ARM POWERGLIDE PLACED THIS SHIFT. SODIUM BEING ADMINISTERED PER EMAR, MANAGED BY MD WOO. APPROX 1640 TELEMETRY NOTIFIED THIS SN AND RAJ GRANDE OF PROLONGED QT: 0.52. MD MOREL NOTIFIED. EKG PERFORMED PER MD MOREL. MD MOREL WITH ORDERS FOR BMP AND MAGNESIUM DRAW. RESULTS PENDING. PT REPOSITIONED WITH ASSISTANCE FREQUENTLY THROUGHOUT SHIFT. 1000ML FLUID RESTRICTION IN PLACE. ABLE TO MAKE NEEDS KNOWN AND CALL APPROPRIATELY. CALL LIGHT WITHIN REACH.
[2022-10-06 18:52] LABS: Bun/Creatinine Ratio 27.3 (12.0-20.0); Creatinine, Blood 2.42 mg/dL (0.40-1.00); Magnesium, Blood 1.8 mg/dL (1.6-2.4); Potassium, Blood 4.1 mmol/L (3.5-5.5)
[2022-10-06 19:49] VITALS: BP 159/96; BP 59/96
[2022-10-06 23:27] VITALS: BP 147/79
[2022-10-07 03:09] VITALS: BP 140/70
--- NOTE | 2022-10-07 03:14 | NUR ---
SHIFT SUMMARY PT IS A&OX4, HAS BEEN FATIGUED W/ GENERALIZED WEAKNESS, AND THE PT CALLS APPROPRIATELY. AT THE START OF THE SHIFT THE PT STARTED HAVING LOWER LEG CRAMPS AND WANTED TO GET UP IN THE CHAIR. IT TOOK TWO NURSING STAFF TO GET HER STANDING UP BECAUSE SHE COULD BARELY SIT UP HERSELF. THE LEG CRAMPS WENT AWAY AFTER SITTING IN THE CHAIR AND HAVING THEM ELEVATED. PT STATES SHE HAS SOME SOB W/ EXERTION. SHE DENIES SOB AT REST, AND ANY ANGINA OR CHEST PRESSURE. SHE IS ON ROOM AIR AND ST 100 S-120 S ON TELE. SHE HAS A PROLONGED QTC AND ST ELEVATION NOTED. DR. WOO CALLED AT ABOUT 2230 AND REQUESTED AN ADDITIONAL SODIUM CHLORIDE TABLET FOR THE PT. HER BED IS IN LOW, CALL LIGHT IS IN REACH. I WILL CONTINUE TO PROVIDE CARE UNTIL HANDOFF IS GIVEN TO THE ONCOMING SHIFT RN SEE NOTES FOR ANY UPDATES.
[2022-10-07 04:02] LABS: BASOPHILS ABSOLUTE AUTO 0.03 K/mm3 (0.00-0.23); BASOPHILS PERCENT AUTO 0 % (0-2); EOSINOPHILS ABSOLUTE AUTO 0.19 K/mm3 (0.00-0.68); EOSINOPHILS PERCENT AUTO 2 % (0-6); Hematocrit 23.6 % (33.0-51.0); Hemoglobin 8.2 g/dL (11.5-16.0); IMMATURE GRAN ABSOLUTE AUTO 0.02 K/mm3 (0.00-0.10); IMMATURE GRAN PERCENT AUTO 0 % (0-1); LYMPHOCYTES ABSOLUTE AUTO 2.87 K/mm3 (0.84-5.20); LYMPHOCYTES PERCENT AUTO 35 % (21-46); MONOCYTES ABSOLUTE AUTO 0.77 K/mm3 (0.16-1.47); MONOCYTES PERCENT AUTO 9 % (4-13); Mean Corpuscular HGB Conc 34.7 g/dL (31.5-36.5); Mean Corpuscular Volume 86 fL (80-100); Mean Platelet Volume 8.7 fL (9.1-12.4); NEUTROPHILS PERCENT AUTO 53 % (41-73); Platelet Count 305 K/mm3 (150-400); RDW Coefficient Variation 13.6 % (11.7-14.2); RDW Standard Deviation 42.2 fL (35.1-46.3); Red Blood Cell Count 2.73 M/mm3 (3.80-5.20); White Blood Cell Count 8.18 K/mm3 (4.00-11.30)
[2022-10-07 04:18] LABS: Albumin, Blood 2.9 g/dL (3.4-5.0); Anion Gap 8 mmol/L (6-16); Blood Urea Nitrogen 64 mg/dL (8-24); Bun/Creatinine Ratio 25.6 (12.0-20.0); CO2, Blood 24 mmol/L (21-32); Calcium, Blood 8.8 mg/dL (8.5-10.1); Chloride, Blood 95 mmol/L (98-108); Glomerular Filtration Rate 19 (60-); Glucose, Blood 208 mg/dL (70-99); Magnesium, Blood 1.9 mg/dL (1.6-2.4); Phosphorus, Blood 3.7 mg/dL (2.5-4.9); Potassium, Blood 3.9 mmol/L (3.5-5.5); Sodium, Blood 127 mmol/L (136-145)
[2022-10-07 07:44] VITALS: BP 122/95
[2022-10-07 12:11] VITALS: BP 136/92
[2022-10-07 15:10] VITALS: BP 93/59
[2022-10-07 15:13] VITALS: BP 126/77
--- NOTE | 2022-10-07 15:18 | NUR ---
CARE ASSUMPTION / AFIB THIS RN ASSUMING CARE OF PT @ 1450. PT A&O TO SELF. PT STATING LOCATION "IN MY CHAIR AT HOME" THEN STATING "OH, NO, IN THE HOSPITAL." PT UNABLE TO STATE THE DATE, STATING "I DON'T KNOW. MUST BE AUGUST? " PT UNABLE TO STATE YEAR. PT REQUESTING MORE FLUIDS DESPITE GLASS OF WATER IN FRONT OF HER. PT REMINDED OF FLUID RESTRICTION & ENCOURAGED TO PACE SELF W/ FLUIDS. MONITOR SHOWING AFIB, HR 90s-110. VSS. NOTIFIED W/ NO NEW ORDERS AT THIS TIME. SPO2 > 92% ON RA.
--- NOTE | 2022-10-07 18:00 | NUR ---
END OF SHIFT PT A&O TO SELF. PT W/ FORGETFULNESS, STATING "[facility]" BUT THEN MOMENTS LATER SAYING "NO, I'M IN THE HOSPITAL." PT VSS. SPO2 > 92% ON RA. MONITOR SHOWING AFIB, HR 90s-110s. NOTIFIED OF CONVERSION TO AFIB. PT INCONTINENT, WEARING ATTENDS. PT 1 PERSON ASSIST OOB. PT CURRENTLY SITTING UP IN CHAIR, CHAIR ALARM ON.
[2022-10-07 20:38] VITALS: BP 85/63
[2022-10-08] VITALS (11 sets, daily range): BP systolic 79–170; BP diastolic 62–106
[2022-10-08 05:27] LABS: Hematocrit 24.8 % (33.0-51.0); Hemoglobin 8.4 g/dL (11.5-16.0)
[2022-10-08 06:09] LABS: Albumin, Blood 2.9 g/dL (3.4-5.0); Anion Gap 10 mmol/L (6-16); Blood Urea Nitrogen 73 mg/dL (8-24); Bun/Creatinine Ratio 29.9 (12.0-20.0); CO2, Blood 21 mmol/L (21-32); Calcium, Blood 9.2 mg/dL (8.5-10.1); Chloride, Blood 97 mmol/L (98-108); Creatinine, Blood 2.44 mg/dL (0.40-1.00); Glomerular Filtration Rate 19 (60-); Glucose, Blood 198 mg/dL (70-99); Magnesium, Blood 2.2 mg/dL (1.6-2.4); Phosphorus, Blood 4.4 mg/dL (2.5-4.9); Sodium, Blood 128 mmol/L (136-145)
--- NOTE | 2022-10-08 06:39 | NUR ---
SHIFT SUMMARY ASSUMED CARE OF PT AT 1900. PT IS A/OX4. HEART SOUNDS IRREGULAR. PT IN AFIB MOST OF THE NIGHT. LUNG SOUNDS DIMINISHED. PT DID NOT SLEEP WELL. DR WOO TO PT ROOM AT 0000 TO CHECK ON CONDITION. PT BP HAS BEEN SOFT THIS SHIFT. DISCUSSED CARE WITH CHARGE NURSE. PT ASYMTOMATIC.
[2022-10-08 12:09] LABS: Potassium, Blood 4.1 mmol/L (3.5-5.5)
--- NOTE | 2022-10-08 15:50 | NUR ---
Initial palliatice care consult: Alexandra is an 86 year old lady with a history of COPD, CHF, HTN, DM, HLD, acid reflux, iron deficiency anemia, CAD with 2 stents, CKD stage 4. She was admitted with hyponatremia and elevated BNP. Echo done during this admission shows EF of 19%. Pt's EF at baseline in 2021 was 40-45%. Alexandra states she lives in [place] with her . They have family in the area as well. She reports SOB, fatigue, edema nyasia nausea prior to her admission to [facility] on 10/05/22. She has been sleeping in her recliner at night recently. Alexandra's , son and DIL are at the bedside. They have many questions about the plan of care, plan for discharge and instructions for home care. Discussed disease process, disease trajectory and answered questions. 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 She enjoys canned soups and we discussed how processed foods contain large amounts of sodium. Discussed diet restrictions, CHF self care at home. Provided printed resources from the EMR on CHF, CHF diet and CKD. Alexandra's DIL volunteered to help with meal prep but wanted some guidelines for the CHF diet. Ham Boner consult ordered for additional CHF education. Discussed options for after care. Alexandra's reports he is physically unable to assist her with care needs when she gets home. If she isn't able to ambulate without assistance he would prefer that she go to a SNF for rehab. He is worried that she will end up readmitted if he can't take care of her. They are open to [facility] or would also consider a rehab facility in [place]. They havd a ramp to get into their house and no stairs in their home. They have a agronomy instructor who comes once a month. Discussed options and resources for follow up on disease maintenance at home. [facility] CHF program and [facility] might be options for additional support at home. Placed a social media coordinator consult for assistance with aftercare programs. Briefly discussed hospice as an option for when they are ready to pursue that. Alexandra was clear that quality of life is very important to her. Discussed AD/POLST forms. Alexandra and her both have advanced directives at home. They report that they did them possibly 15 years or so ago. They will review them. New advanced directives booklets given to them per their request. Discussed code status. Alexandra requests to be a DNR. She was getting tired toward the end of our conversation and requested that she fill out her POLST form tomorrow. Spoke with Dr. Wei and new order placed for DNR. PC to follow up with pt/family to assist with filling out forms, symptom managment and advanced care planning prn.
--- NOTE | 2022-10-08 18:25 | NUR ---
SHIFT SUMMARY: PT HAS BEEN ALERT, FORGETFUL AT TIMES, COOPERATIVE W/CARE. O2 SATS >93% ON RA, PT DENIES INCREASED SOB (REPORTS MILD SOB AT BASELINE). AFIB ON MONITOR, RATE 90s-100s, PT DENIES CHEST PAIN. NO BM THIS SHIFT. PT IS INCONTINENT OF URINE, ATTENDS IN PLACE AND CHANGED NEEDED. FR CONTINUES IN PLACE PER ORDERS. MEDICATION CHANGES T/OUT THE DAY, 1 UNIT PRBCs ADMINISTERED PER ORDERS. FAMILY MEMBERS TO BEDSIDE W/MANY QUESTIONS RE: PLAN OF CARE AND RESOURCES OUTSIDE OF HOSPITAL, PALLIATIVE CARE TO BEDSIDE (SEE NOTE), AND ADDITIONAL CONSULTATIONS PLACED. PT RESTING QUIETLY IN BED, WILL CONTINUE TO MONITOR AND TREAT ACCORDINGLY UNTIL CHANGE OF SHIFT.
[2022-10-09 04:34] VITALS: BP 154/80
[2022-10-09 04:37] LABS: Hematocrit 25.4 % (33.0-51.0); Hemoglobin 8.6 g/dL (11.5-16.0)
[2022-10-09 04:52] LABS: Albumin, Blood 2.8 g/dL (3.4-5.0); Anion Gap 9 mmol/L (6-16); Blood Urea Nitrogen 71 mg/dL (8-24); CO2, Blood 23 mmol/L (21-32); Chloride, Blood 101 mmol/L (98-108); Creatinine, Blood 2.37 mg/dL (0.40-1.00); Glomerular Filtration Rate 20 (60-); Glucose, Blood 136 mg/dL (70-99); Phosphorus, Blood 4.1 mg/dL (2.5-4.9); Potassium, Blood 3.4 mmol/L (3.5-5.5); Sodium, Blood 133 mmol/L (136-145)
--- NOTE | 2022-10-09 06:08 | NUR ---
STRATEGIC CONSULTANT SUMMARY ASSUMED CARE OF THE PT AT 1900. SHE IS ALERT AND ORIENTED X2-3, SOMETIMES FORGETFUL. PT COOPERATIVE WITH CARE AND ABLE TO ASSIST IN ROLLING FOR ATTENDS CHANGES. VSS, THOUGH PT SLIGHTLY HYPERTENSIVE ON THE LEFT ARM. SHE HAD SOME DIFFICULTY SLEEPING, DESPITE MELATONIN. PT HAS BEEN AFIB ON TELE WITH SOME BIGEMINY. SATURATIONS >92% ON RA. REPORTS "PAIN IN EVERY MUSCLE OF MY BODY" BUT NOTED TO BE SNORING SHORTLY AFTER. NO ACUTE CONCERNS AT THIS TIME.
[2022-10-09 07:35] VITALS: BP 111/89
[2022-10-09 11:10] VITALS: BP 154/79
--- NOTE | 2022-10-09 12:35 | NUR ---
DAY SHIFT SUMMARY RECIEVED REPORT AND GREETED THE PATIENT. PREFORMED AN ASSESSMENT AND ADMINISTERED MEDICATIONS. PROVIDED SOME EDUCATION ON MEDICATION AND MEDICATION ADMINISTRATION.
[2022-10-09 16:11] VITALS: BP 167/84
[2022-10-09 21:20] VITALS: BP 104/91
[2022-10-09 22:35] VITALS: BP 151/70
[2022-10-10 00:02] VITALS: BP 160/76
[2022-10-10 04:00] VITALS: BP 144/71
[2022-10-10 05:49] LABS: Hematocrit 25.9 % (33.0-51.0); Hemoglobin 8.7 g/dL (11.5-16.0)
[2022-10-10 06:02] LABS: Albumin, Blood 2.8 g/dL (3.4-5.0); Anion Gap 8 mmol/L (6-16); Blood Urea Nitrogen 69 mg/dL (8-24); Bun/Creatinine Ratio 30.9 (12.0-20.0); CO2, Blood 24 mmol/L (21-32); Calcium, Blood 8.9 mg/dL (8.5-10.1); Chloride, Blood 104 mmol/L (98-108); Creatinine, Blood 2.23 mg/dL (0.40-1.00); Glomerular Filtration Rate 21 (60-); Glucose, Blood 183 mg/dL (70-99); Magnesium, Blood 2.1 mg/dL (1.6-2.4); Phosphorus, Blood 4.1 mg/dL (2.5-4.9); Potassium, Blood 3.6 mmol/L (3.5-5.5); Sodium, Blood 136 mmol/L (136-145)
--- NOTE | 2022-10-10 06:16 | NUR ---
AIRCRAFT REFUELLER SUMMARY ASSUMED CARE OF THE PT AT 1900. SHE IS ALERT AND ORIENTED X2, DISORIENTED TO TIME. PT COOPERATIVE WITH CARE. BP LOW AT TIME OF HS MEDS, SO IMDUR WAS HELD UNTIL REPEAT BP WAS IMPROVED. PT BP IMPROVED THIS AM. HAS BEEN AFIB IN THE 90S AND 100S ON TELE. CONTINUES TO BE INCONTINENT AT NIGHT SO YVES WAS PLACED PT STATES "I DON'T MIND SITTING IN IT" DESPITE BEING TOLD ABOUT THE EFFECTS ON HER COCCYX WOUNDS. NO ACUTE EVENTS THIS SHIFT.
[2022-10-10 06:58] VITALS: BP 155/79
--- NOTE | 2022-10-10 07:24 | NUR ---
Received report from Noc RN. Patient is awake in bed and alert to place, year, city she lives in. She is oriented and is able to communicate her needs. She is on RA and sats 100%. She is incontinent to urine and has purwick in place and has good yellow output. She has 18ga PowerGlide in place, flushed and SL'd. She MEW but week and needs more PT and OT before going home. Family wants to talk with Dietary today. call light within reach.
--- NOTE | 2022-10-10 11:30 | NUR ---
Patient up in chair after breakfast. She has been seen by Dr Snyder and is working on sending her home today possibly after she sees . Remains on RA and sats >90%. She denies any current issues and is anxious to go home. She QUICK and is tolerating small amounts of ambulation,
[2022-10-10 12:04] VITALS: BP 157/72
[2022-10-10] MEDS ORDERED: BUME2 PO (15:51)
[2022-10-10] MEDS ORDERED: ELIQUIS2.5 MG PO (15:54)
[2022-10-10] MEDS ORDERED: ATOR40TA PO (15:55)
[2022-10-10] MEDS ORDERED: NEPHRO VITAMIN0.8 MG PO (15:55)
[2022-10-10] MEDS ORDERED: CEPH250A PO (15:56)
[2022-10-10] MEDS ORDERED: CLOP75 PO (15:57)
[2022-10-10] MEDS ORDERED: DOCU100 PO (15:58)
[2022-10-10] MEDS ORDERED: BASAGLAR K100 UNIT/1 SC (16:00)
[2022-10-10] MEDS ORDERED: HUMULIN R100 UNIT/2 SC (16:02)
[2022-10-10] MEDS ORDERED: Isosorbide Mono30 MG PO (16:03)
[2022-10-10] MEDS ORDERED: MELATONIN5 M1 PO (16:04)
[2022-10-10] MEDS ORDERED: SENN187 PO (16:05)
[2022-10-10] MEDS ORDERED: SODBIC650 PO (16:06)
[2022-10-10] MEDS ORDERED: SODCHL1 PO (16:07)
--- NOTE | 2022-10-10 17:38 | NUR ---
Patient is discharged. reveived written discharge instructions and all new meds with and showed the use of insulin pens and insulin needles. He returned understandind and will talk with home health and review with them as well. She was up independently to bathroom several times while waiting for discharge. PT and OT worked with today to show things to do at home and supplies to get. will pick up operator all new meds from [facility] and if any questions will call here. She was taken out in wheelchair with all belongings to [facility].
== END 2022-10-10 17:25 | disposition home health service (06) | DRG 640 ==
LOC: ER 10:32 → PCU 13:28 → ICUW 13:28 → PCU 17:02
PROVIDERS: Internal Medicine Nephrology; Physician Assistant; ADMIT Family Medicine
PROC: 30233N1 Transfusion of Nonautologous Red Blood Cells into Peripheral Vein, Percutaneous Approach (ICD-10-PCS; principal; 2022-10-08)
DX: E87.1 Hypo-osmolality and hyponatremia (principal); I21.A1 Myocardial infarction type 2; I50.23 Acute on chronic systolic (congestive) heart failure; I13.0 Hypertensive heart and chronic kidney disease with heart failure and stage 1 through stage 4 chronic kidney disease, or unspecified chronic kidney disease; N18.4 Chronic kidney disease, stage 4 (severe); N39.0 Urinary tract infection, site not specified; N25.81 Secondary hyperparathyroidism of renal origin; N17.9 Acute kidney failure, unspecified; I48.19 Other persistent atrial fibrillation; I42.9 Cardiomyopathy, unspecified; E87.20 Acidosis, unspecified; Z51.5 Encounter for palliative care; I95.9 Hypotension, unspecified; I25.10 Atherosclerotic heart disease of native coronary artery without angina pectoris; K21.9 Gastro-esophageal reflux disease without esophagitis; E78.5 Hyperlipidemia, unspecified; E11.22 Type 2 diabetes mellitus with diabetic chronic kidney disease; E88.09 Other disorders of plasma-protein metabolism, not elsewhere classified; J44.9 Chronic obstructive pulmonary disease, unspecified; D63.1 Anemia in chronic kidney disease; E87.6 Hypokalemia; K59.00 Constipation, unspecified; E11.65 Type 2 diabetes mellitus with hyperglycemia; I34.0 Nonrheumatic mitral (valve) insufficiency; D50.9 Iron deficiency anemia, unspecified; I67.9 Cerebrovascular disease, unspecified; I44.7 Left bundle-branch block, unspecified; I27.20 Pulmonary hypertension, unspecified; B95.1 Streptococcus, group B, as the cause of diseases classified elsewhere; Z88.2 Allergy status to sulfonamides; Z88.7 Allergy status to serum and vaccine; Z79.82 Long term (current) use of aspirin; Z79.84 Long term (current) use of oral hypoglycemic drugs; Z79.899 Other long term (current) drug therapy; Z79.51 Long term (current) use of inhaled steroids; Z79.2 Long term (current) use of antibiotics; Z99.81 Dependence on supplemental oxygen; Z95.5 Presence of coronary angioplasty implant and graft; Z79.4 Long term (current) use of insulin; Z87.19 Personal history of other diseases of the digestive system; Z87.891 Personal history of nicotine dependence; Z86.73 Personal history of transient ischemic attack (TIA), and cerebral infarction without residual deficits
CPT/HCPCS: 36415; 71046; 76770; 80048; 80053; 80069; 81001; 82533; 82607; 82728; 82746; 82947; 83036; 83540; 83550; 83735; 83880; 83930; 83935; 84132; 84295; 84300; 84443; 84484; 84550; 85014; 85018; 85025; 86850; 86900; 86901; 86923; 87086; 87147; 93005; 93010; 94640; 94664; 94760; 97110; 97112; 97116; 97162; 97165; 97530; 97535; 99285-25; A9270; C1751; C8929; J0295; J0696; J0881; J1160; J1644; J1815; J1940; J7040; P9016; Q9957

== ENCOUNTER → 2023-01-10 | Outpatient (CLI) | payer MEDICARE, OTHER ==
[~2023-01-10] MED LIST changes: +ATOR40TA PO; +Aspir 8181 MG PO; +BASAGLAR K100 UNIT/1 SC; +CEPH250A PO; +CLOP75 PO; +DOCU100 PO; +ELIQUIS2.5 MG PO; +HUMULIN R100 UNIT/2 SC; +Isosorbide Mono30 MG PO; +LOSA25; +Metformin HCl750 MG PO; +NEPHRO VITAMIN0.8 MG PO; +POTA10T PO; +SENN187 PO; +SODBIC650 PO; +SODCHL1 PO
[2023-01-10 11:25] LABS: BASOPHILS ABSOLUTE AUTO 0.02 K/mm3 (0.00-0.23); BASOPHILS PERCENT AUTO 0 % (0-2); EOSINOPHILS ABSOLUTE AUTO 0.24 K/mm3 (0.00-0.68); EOSINOPHILS PERCENT AUTO 4 % (0-6); Hematocrit 27.1 % (33.0-51.0); Hemoglobin 9.1 g/dL (11.5-16.0); IMMATURE GRAN ABSOLUTE AUTO 0.01 K/mm3 (0.00-0.10); IMMATURE GRAN PERCENT AUTO 0 % (0-1); LYMPHOCYTES ABSOLUTE AUTO 2.11 K/mm3 (0.84-5.20); LYMPHOCYTES PERCENT AUTO 33 % (21-46); MONOCYTES PERCENT AUTO 8 % (4-13); Mean Corpuscular HGB 27.9 pg (26.0-34.0); Mean Corpuscular HGB Conc 33.6 g/dL (31.5-36.5); Mean Corpuscular Volume 83 fL (80-100); Mean Platelet Volume 9.3 fL (9.1-12.4); NEUTROPHILS ABSOLUTE AUTO 3.49 K/mm3 (1.96-9.15); NEUTROPHILS PERCENT AUTO 55 % (41-73); Platelet Count 213 K/mm3 (150-400); RDW Coefficient Variation 15.2 % (11.7-14.2); RDW Standard Deviation 46.5 fL (35.1-46.3); Red Blood Cell Count 3.26 M/mm3 (3.80-5.20); White Blood Cell Count 6.37 K/mm3 (4.00-11.30)
[2023-01-10 11:46] LABS: Albumin, Blood 3.2 g/dL (3.4-5.0); Albumin/Globulin Ratio 0.9 (0.8-1.8); Bilirubin, Direct 0.2 mg/dL (0.0-0.3); Bilirubin, Indirect 0.4 mg/dL (0.1-0.7); Bilirubin, Total 0.6 mg/dL (0.1-1.0); Bun/Creatinine Ratio 44.7 (12.0-20.0); Calcium, Blood 8.7 mg/dL (8.5-10.1); Creatinine, Blood 2.64 mg/dL (0.40-1.00); Globulin, Blood 3.4 g/dL (2.2-4.0); Potassium, Blood 3.5 mmol/L (3.5-5.5); Total Protein, Blood 6.6 g/dL (6.4-8.2)
== END ==
LOC: LAB SHORT 09:40 → LAB 09:40
PROVIDERS: Internal Medicine Nephrology
DX: N18.30 Chronic kidney disease, stage 3 unspecified (principal); D63.1 Anemia in chronic kidney disease; R76.9 Abnormal immunological finding in serum, unspecified; R94.6 Abnormal results of thyroid function studies
CPT/HCPCS: 80053; 82248; 84100; 85025

== ENCOUNTER 2023-01-22 08:42 | Inpatient (IN) | payer MEDICARE, OTHER ==
[~2023-01-22] VITALS: Ht 162.6 cm; Wt 71.8 kg
[~2023-01-22 08:42] MED LIST changes: -HUMULIN R100 UNIT/2 SC; -LOSA25; +LOSA25 PO; -OMEP20ER PO
[2023-01-22] MEDS ORDERED: SODCHL1 PO (09:11)
[2023-01-22 09:24] LABS: BASOPHILS ABSOLUTE AUTO 0.02 K/mm3 (0.00-0.23); BASOPHILS PERCENT AUTO 0 % (0-2); EOSINOPHILS ABSOLUTE AUTO 0.01 K/mm3 (0.00-0.68); EOSINOPHILS PERCENT AUTO 0 % (0-6); Hematocrit 26.5 % (33.0-51.0); Hemoglobin 9.1 g/dL (11.5-16.0); IMMATURE GRAN ABSOLUTE AUTO 0.02 K/mm3 (0.00-0.10); IMMATURE GRAN PERCENT AUTO 0 % (0-1); LYMPHOCYTES ABSOLUTE AUTO 1.86 K/mm3 (0.84-5.20); LYMPHOCYTES PERCENT AUTO 23 % (21-46); MONOCYTES ABSOLUTE AUTO 0.65 K/mm3 (0.16-1.47); MONOCYTES PERCENT AUTO 8 % (4-13); Mean Corpuscular HGB 28.2 pg (26.0-34.0); Mean Corpuscular HGB Conc 34.3 g/dL (31.5-36.5); Mean Corpuscular Volume 82 fL (80-100); Mean Platelet Volume 9.2 fL (9.1-12.4); NEUTROPHILS ABSOLUTE AUTO 5.58 K/mm3 (1.96-9.15); NEUTROPHILS PERCENT AUTO 69 % (41-73); Platelet Count 230 K/mm3 (150-400); RDW Coefficient Variation 15.9 % (11.7-14.2); RDW Standard Deviation 47.8 fL (35.1-46.3); Red Blood Cell Count 3.23 M/mm3 (3.80-5.20); White Blood Cell Count 8.14 K/mm3 (4.00-11.30)
[2023-01-22 09:40] LABS: Albumin, Blood 3.6 g/dL (3.4-5.0); Bilirubin, Total 0.8 mg/dL (0.1-1.0); Bun/Creatinine Ratio 49.5 (12.0-20.0); Calcium, Blood 9.3 mg/dL (8.5-10.1); Creatinine, Blood 2.97 mg/dL (0.40-1.00); Globulin, Blood 3.7 g/dL (2.2-4.0); Potassium, Blood 3.2 mmol/L (3.5-5.5); Total Protein, Blood 7.3 g/dL (6.4-8.2)
[2023-01-22 10:09] LABS: Thyroid Stimulating Hormone 2.27 uIU/mL (0.360-4.800)
[2023-01-22 12:35] LABS: Source, Urine Clean Catch
[2023-01-22 12:51] LABS: Appearance, Urine Clear (Clear); Bilirubin, Urine Neg (Neg); Blood, Urine 4+ (Neg); Color, Urine Yellow (P-Yellow); Glucose Qualitative, Urine Neg (Neg); Ketones, Urine Neg (Neg); Leukocyte Esterase, Urine 3+ (Neg); Nitrite, Urine Neg (Neg); Protein, Urine Neg (Neg); Urobilinogen, Urine NORM (Normal)
[2023-01-22 13:02] LABS: Bacteria Few /hpf; Squamous Epithelial Cells Few /hpf (Few)
[2023-01-22] MEDS ORDERED: LOSA50 PO (17:22)
[2023-01-22] MEDS ORDERED: METO2.5 PO (17:24)
[2023-01-22] MEDS ORDERED: MONT10T PO (17:26)
[2023-01-22] MEDS ORDERED: GLIP5 PO (17:26)
--- NOTE | 2023-01-22 19:07 | NUR ---
TRANSFER PT ARRIVED FROM ER AT 1855. LINENS SATURATED WITH URINE, PUREWICK COVERED IN BM. PT A&OX4. REPORTED TO BE A SBA/1PA, BUT PATIENT HAS NOT GOTTEN OUT OF BED. WT 71.8KG. DENIES CP, HEADACHE, DIZZINESS, OR SOB. PRESSURE ULCER NOTED ON R BUTTOCK, BACK OF THIGH. BRUISES NOTED TO R UPPER BACK AND ARMS. 2 NURSE SKIN CHECK DONE WITH RAJ MORA. BARRIER CREAM AND MEPILEX APPLIED TO PATIENT'S COCCYX. REPORT GIVEN TO ONCOMING RN.
[2023-01-22] MEDS ORDERED: ELIQUIS2.5 MG PO (19:43)
[2023-01-22 20:20] VITALS: BP 129/57
[2023-01-23] VITALS (9 sets, daily range): BP systolic 54–150; BP diastolic 30–75
[2023-01-23 05:17] LABS: BASOPHILS ABSOLUTE AUTO 0.02 K/mm3 (0.00-0.23); BASOPHILS PERCENT AUTO 0 % (0-2); EOSINOPHILS ABSOLUTE AUTO 0.02 K/mm3 (0.00-0.68); EOSINOPHILS PERCENT AUTO 0 % (0-6); Hematocrit 24.3 % (33.0-51.0); Hemoglobin 8.1 g/dL (11.5-16.0); IMMATURE GRAN ABSOLUTE AUTO 0.02 K/mm3 (0.00-0.10); IMMATURE GRAN PERCENT AUTO 0 % (0-1); LYMPHOCYTES ABSOLUTE AUTO 1.65 K/mm3 (0.84-5.20); LYMPHOCYTES PERCENT AUTO 25 % (21-46); MONOCYTES ABSOLUTE AUTO 0.57 K/mm3 (0.16-1.47); MONOCYTES PERCENT AUTO 9 % (4-13); Mean Corpuscular HGB 27.7 pg (26.0-34.0); Mean Corpuscular HGB Conc 33.3 g/dL (31.5-36.5); Mean Corpuscular Volume 83 fL (80-100); Mean Platelet Volume 9.4 fL (9.1-12.4); NEUTROPHILS ABSOLUTE AUTO 4.39 K/mm3 (1.96-9.15); NEUTROPHILS PERCENT AUTO 66 % (41-73); Platelet Count 215 K/mm3 (150-400); RDW Coefficient Variation 16.1 % (11.7-14.2); RDW Standard Deviation 49.1 fL (35.1-46.3); Red Blood Cell Count 2.92 M/mm3 (3.80-5.20); White Blood Cell Count 6.67 K/mm3 (4.00-11.30)
--- NOTE | 2023-01-23 05:47 | NUR ---
SHIFT SUMMARY A/OX3, FORGETFUL. BEDREST AT THIS TIME. DENIES PAIN AND N/V. RESTLESS T/O THE NIGHT. IV FLUIDS INFUSING PER EMAR. VSS, NO ACUTE CHANGES AT THIS TIME. BED IN LOWEST POSITION WITH CALL LIGHT IN REACH. WILL CONTINUE TO MONITOR AND REPORT TO ONCOMING RN.
[2023-01-23 05:54] LABS: Bun/Creatinine Ratio 50.2 (12.0-20.0); Creatinine, Blood 2.77 mg/dL (0.40-1.00)
[2023-01-23] MEDS ORDERED: OMEP20ER PO (15:34)
[2023-01-23] MEDS ORDERED: NOVOLIN R100 UNIT/2 (15:35)
--- NOTE | 2023-01-23 18:21 | NUR ---
THE PATIENT HAS IV TROUBLES TODAY AND ENDED UP WITH A POWER GLIDE. THE PATIENT HAS BEEN SLEEPING MOST OF THE SHIFT AND IS A&O X3, FOLLOWS COMMANDS AND IS PLEASANT TO VISIT WITH, I WILL CONTINUE TO MONITOR HER.
--- NOTE | 2023-01-23 20:18 | NUR ---
ALERTED TO HYPOTENSION W/MANUAL BP DIFFICULT TO AUSCULTATE, SBP POSSIBLY 100 W/RADIAL PULSE 98 BPM. MACHINE BP BEST WAS 75/58 W/MAP 64 AND HR 118. HEALTH HX RELAYED AND 500ML NS BOLUS RX'D AND TO BE RECIEVED AT THIS TIME. WILL CONT TO MONITOR AND RECHECK VITALS AFTER BOLUS.
--- NOTE | 2023-01-23 21:52 | NUR ---
BOLUS RECIEVED AND BP IS STILL DIFFICULT TO AUSCULTATE MANUALLY BUT SEEMED TO BE 86/64 W/HR 102 BPM. MACHINE RANGED FROM 81/68 TO 93/60 W/MAP 75 AND HR 99-103 BPM. NOTIFIED AND MIDODRINE 5MG NOW RX'D AND WILL BE RECIEVED. PT CONT'S TO BE ASYMPTOMATIC OF CARDIAC DISTRESS, DENYING CP/PRESSURE, DIZZYNESS AND ALL OTHER COMPLAINTS. WILL ADMINISTER THEN REEVALUATE VITALS.
--- NOTE | 2023-01-24 00:14 | NUR ---
ALERTED TO ONGOING ASYMPTOMATIC HYPOTENSION POST MIDODRINE. NEW ORDER RECIEVED FOR TELEMETRY AND MIDODRINE 5MG PO, 1ST DOSE AT 0200. WCTM AND EVALUATE FOR S/S CARDIAC DISTRESS.
[2023-01-24 02:06] VITALS: BP 85/68
[2023-01-24 04:45] VITALS: BP 79/61
--- NOTE | 2023-01-24 05:43 | NUR ---
SUMMARY: PT A/OX3 AND WAS UNSURE OF DATE, BUT ANSWERS Q'S APPROPRIATELY AND IS PLEASANT AND COOPERATIVE W/CARE. SHE'S PALE AND SLIGHTLY DROWSY BUT ROUSES EASILY AND IS INTERACTIVE W/STAFF WHEN PRESENT. PT HAS BEEN HYPOTENSIVE SINCE START OF SHIFT BUT SHE'S REMAINED ASYMPTOMATIC, DENYING DIZZYNESS, CP/PRESSURE AND ALL OTHER S/S CARDIAC DISTRESS. SHE WAS MADE BEDREST FOR PT SAFETY W/BED ALARM ARMED, VITAL SIGNS MONITORED FREQUENTLY AND UPDATED REGULARLY. INITIAL KELTON BP WAS 54/30 BUT ACCURACY WAS QUESTIONED SO WAS PROMPTLY RECHECKED TO BE 75/58 W/MAP 64. MANUAL L.WRIST BP WAS 100/60 BUT MANUALS HAVE BEEN VERY DIFFICULT TO AUSCULTATE THUS ALSO QUESTIONED. 500 ML NS BOLUS WAS RECEIVED FOR BP IMPROVEMENT TO 93/60 BUT SOON TRENDED DOWNWARD AGAIN TO 81/68. MIDODRINE 5MG PO X1 WAS PROVIDED AT THAT TIME FOR MINIMAL EFFECT OF 83/61. THEN RX'D AN ADDITIONAL DOSE OF MIDODRINE 5MG TO BE GIVEN AT APPROX 0200 AND INSTRUCTED TO START MIDODRINE 5MG PO TID W/DAY MD TO REEVALUATE. BP HAS SINCE SUSTAINED SBP 8O'S W/MAP 75 AND HR 90'S-100'S. SHE WAS PLACED ON TELE FOR HYPOTENSION, HX AFIB ON ELIQUIS AND IRREGULAR PULSE. SHE'S REMAINED AFIB AT 90'S-1OO'S BPM W/CONT NS INFUSING AT 110 ML/HR. PT HAS SBD TO BUTTOCKS W/MEPILEX C/D/I AND TURN SCHEDULE MAINTAINED. PUREWIC IS IN PLACE AND LEGS ARE ELEVATED ABOVE CHEST LEVEL TOLERATED. FELT MEDICAL STATUS REMAINED APPROPRIATE SO LONG BP AND HR REMAINED STABLE AND PT CONT'D TO BE ASYMPTOMATIC OF CARDIAC DISTRESS. ALL OTHER VSS. SHE'S BEEN AFEBRILE T/O NOCTE W/SPO2 WNL ON RA AND RESPS E/U. AM LABS PENDING. SEE PREVIOUS NOTES FOR FURTHER DETAILS. WCTM CLOSELY, UPDATE MD NEEDED AND REPORT TO DAY RN.
[2023-01-24 05:50] LABS: BASOPHILS ABSOLUTE AUTO 0.03 K/mm3 (0.00-0.23); BASOPHILS PERCENT AUTO 1 % (0-2); EOSINOPHILS ABSOLUTE AUTO 0.13 K/mm3 (0.00-0.68); EOSINOPHILS PERCENT AUTO 2 % (0-6); Hematocrit 23.4 % (33.0-51.0); Hemoglobin 7.7 g/dL (11.5-16.0); IMMATURE GRAN ABSOLUTE AUTO 0.03 K/mm3 (0.00-0.10); IMMATURE GRAN PERCENT AUTO 1 % (0-1); LYMPHOCYTES ABSOLUTE AUTO 2.44 K/mm3 (0.84-5.20); LYMPHOCYTES PERCENT AUTO 37 % (21-46); MONOCYTES ABSOLUTE AUTO 0.54 K/mm3 (0.16-1.47); MONOCYTES PERCENT AUTO 8 % (4-13); Mean Corpuscular HGB 27.9 pg (26.0-34.0); Mean Corpuscular HGB Conc 32.9 g/dL (31.5-36.5); Mean Corpuscular Volume 85 fL (80-100); Mean Platelet Volume 9.2 fL (9.1-12.4); NEUTROPHILS ABSOLUTE AUTO 3.45 K/mm3 (1.96-9.15); NEUTROPHILS PERCENT AUTO 52 % (41-73); Platelet Count 198 K/mm3 (150-400); RDW Coefficient Variation 16.4 % (11.7-14.2); RDW Standard Deviation 50.3 fL (35.1-46.3); Red Blood Cell Count 2.76 M/mm3 (3.80-5.20); White Blood Cell Count 6.62 K/mm3 (4.00-11.30)
--- NOTE | 2023-01-24 06:00 | NUR ---
ALERTED TO TRENDING DOWNWARD HGB/HCT IN PRESENCE OF PERSISTENT AND WORSENING HYPOTENSION DESPITE TONIGHT'S INTERVENTIONS. HGB/HCT NOW 7.7 & 23.4 (WAS 8.1 & 24.3). KELTON BP IS NOW 79/61 CONFIRMED BY DOPPLER W/MAP OF 67. OK'D PT REMAIN MEDICAL STATUS SO LONG MAP >65 AND SHE'S ASYMPTOMATIC OF CARDIAC DISTRESS. HGB/HCY RX'D FOR 1000 AND SHE INTENDS TO DISCUSS NIGHT'S EVENTS W/DAY MD FOR FURTHER EVALUATION AND TREATMENT. WILL ENSURE DAY STAFF ARE AWARE TO MONITOR CLOSELY AND FOLLOW UP.
--- NOTE | 2023-01-24 06:02 | NUR ---
ALERTED TO TRENDING DOWNWARD HGB/HCT IN PRESENCE OF PERSISTENT AND WORSENING HYPOTENSION DESPITE TONIGHT'S INTERVENTIONS. HGB/HCT NOW 7.7 & 23.4 (WAS 8.1 & 24.3). KELTON BP IS NOW 79/61 CONFIRMED BY DOPPLER W/MAP OF 67. OK'D PT REMAIN MEDICAL STATUS SO LONG MAP >65 AND SHE'S ASYMPTOMATIC OF CARDIAC DISTRESS. HGB/HCY RX'D FOR 1200 AND SHE INTENDS TO DISCUSS NIGHT'S EVENTS W/DAY MD FOR FURTHER EVALUATION AND TREATMENT. WILL ENSURE DAY STAFF ARE AWARE TO MONITOR CLOSELY AND FOLLOW UP.
[2023-01-24 06:09] LABS: Calcium, Blood 8.4 mg/dL (8.5-10.1); Creatinine, Blood 2.47 mg/dL (0.40-1.00); Potassium, Blood 3.4 mmol/L (3.5-5.5)
[2023-01-24 07:30] VITALS: BP 90/73
--- NOTE | 2023-01-24 09:04 | NUR ---
METOPROLOL TALKED WITH DR CHARLES. HE ISTRUCTED THIS NURSE TO HOLD THE METOPROLOL 12.5 MG THIS MORNING. COMMUNICATED TELEMETRY SUSTAINING AFIB HR 90-103 BPM. CONTINUE POC.
[2023-01-24 09:40] LABS: Percent Saturation 10.3 % (15.0-50.0)
--- NOTE | 2023-01-24 11:05 | NUR ---
BASHIR PT BASHIR HAS COVID. HE IS QUARENTINING UNTIL 01/28/2023. HE HAS CONTACTED DR CORDOVA THEY ARE PLANNING SNF TO [facility] UPON DISCHARGE. BASHIR IS UNABLE TO CARE FOR HER ALONE ANYMORE PER HIS INSTRUCTION. CONTINUE POC.
[2023-01-24 11:10] LABS: Hematocrit 23.2 % (33.0-51.0); Hemoglobin 7.7 g/dL (11.5-16.0)
[2023-01-24 11:22] VITALS: BP 92/71
[2023-01-24 15:45] VITALS: BP 103/74
--- NOTE | 2023-01-24 18:51 | NUR ---
NOTE PT ALERT. SHE RESTED MOST OF THE MORING. LARGE OUT PT VIA PUREWICK. SBP IMPROVING. UP TO BSC WITH 1 ASSIST. DENIED DIZZINESS OR SOB. SEE NOTE. CONTINUE POC.
[2023-01-24 19:19] VITALS: BP 91/72
[2023-01-25 02:55] VITALS: BP 95/73
--- NOTE | 2023-01-25 05:31 | NUR ---
SHIFT SUMMARY PATIENT AWAKE AND WATCHING TV MOST OF NIGHT. SLIGHTLY CONFUSED, BUT PLEASANT AND COOPERATIVE. NO COMPLAINT OF PAIN. PURE WIC IN PLACE. TELE SHOWED PATIENT IN AFIB WITH BUNDLE BRANCH BLOCKS WITH RATE OF 110.
[2023-01-25 07:50] VITALS: BP 106/80
[2023-01-25 08:11] LABS: BASOPHILS ABSOLUTE AUTO 0.02 K/mm3 (0.00-0.23); BASOPHILS PERCENT AUTO 0 % (0-2); EOSINOPHILS ABSOLUTE AUTO 0.12 K/mm3 (0.00-0.68); EOSINOPHILS PERCENT AUTO 2 % (0-6); Hematocrit 25.2 % (33.0-51.0); Hemoglobin 8.4 g/dL (11.5-16.0); IMMATURE GRAN ABSOLUTE AUTO 0.03 K/mm3 (0.00-0.10); IMMATURE GRAN PERCENT AUTO 0 % (0-1); LYMPHOCYTES ABSOLUTE AUTO 1.98 K/mm3 (0.84-5.20); LYMPHOCYTES PERCENT AUTO 25 % (21-46); MONOCYTES ABSOLUTE AUTO 0.64 K/mm3 (0.16-1.47); MONOCYTES PERCENT AUTO 8 % (4-13); Mean Corpuscular HGB 28.4 pg (26.0-34.0); Mean Corpuscular HGB Conc 33.3 g/dL (31.5-36.5); Mean Corpuscular Volume 85 fL (80-100); Mean Platelet Volume 9.5 fL (9.1-12.4); NEUTROPHILS PERCENT AUTO 64 % (41-73); Platelet Count 228 K/mm3 (150-400); RDW Coefficient Variation 16.6 % (11.7-14.2); RDW Standard Deviation 52.4 fL (35.1-46.3); Red Blood Cell Count 2.96 M/mm3 (3.80-5.20); White Blood Cell Count 7.79 K/mm3 (4.00-11.30)
--- NOTE | 2023-01-25 08:12 | NUR ---
Pt laying in bed awake a/ox3 pleasant and cooperative with care, follows commands well, denies pain, states she's ready to go home, lungs are clear in upper den[place], dim in bases, audible wheeze heard at times, on r/a, no cough noted, hrr, tele in place running afib per monitor, see strip, no edema noted, ppp faint, cap refill <3sec, vs stable, afebrile, iv is power glide to olivia site is clear and patent, and draws well, btx4, abd flat soft nontender, voids without diff, skin c/w/d, maew, jeffrey, call light in reach.
[2023-01-25 08:36] LABS: Albumin, Blood 2.9 g/dL (3.4-5.0); Anion Gap 13 mmol/L (6-16); Blood Urea Nitrogen 102 mg/dL (8-24); Bun/Creatinine Ratio 45.5 (12.0-20.0); CO2, Blood 19 mmol/L (21-32); Calcium, Blood 8.4 mg/dL (8.5-10.1); Chloride, Blood 102 mmol/L (98-108); Creatinine, Blood 2.24 mg/dL (0.40-1.00); Glomerular Filtration Rate 21 (60-); Glucose, Blood 176 mg/dL (70-99); Phosphorus, Blood 4.9 mg/dL (2.5-4.9); Potassium, Blood 3.9 mmol/L (3.5-5.5); Sodium, Blood 134 mmol/L (136-145)
--- NOTE | 2023-01-25 12:42 | NUR ---
notified Dr. Anthony about incident with PT, pt had to be sat down and not verbally responding, PT thought she was going to pass out, will check orthostatic per Dr. Anthony. she states she feels ok in bed. call light in reach.
[2023-01-25 13:08] VITALS: BP 89/69
[2023-01-25 14:14] LABS: Influenza A, PCR NEGATIVE (NEGATIVE); Influenza B, PCR NEGATIVE (NEGATIVE); Resp Syncytial Virus, PCR NEGATIVE (NEGATIVE)
[2023-01-25 14:22] LABS: SARS-Cov-2 (COVID-19) PCR, MMC POSITIVE (NEGATIVE)
[2023-01-25 14:29] VITALS: BP 95/74
--- NOTE | 2023-01-25 19:02 | NUR ---
PT QUITE THIS AFT. NO NEW CONCERNS NOTED. PLANS FOR D/C TO [facility] FOR REHAB TOMORROW. DID TEST POS FOR COVID. CARE MGMT NOTED. LUNGS WHEEEZY, BED IN LOW POSITION, CALL LITE IN REACH, CALLS APPROP
[2023-01-25 19:39] VITALS: BP 99/83
--- NOTE | 2023-01-26 03:03 | NUR ---
REPORT RECEIVED VERIFIED A/O FLAT AFFECT NO C/O PAIN, STATES SHE IS DOING FINE PURWIC IN PLACE AND DRAINING POWER GLIDE TO LEFT ARM.
[2023-01-26 03:39] VITALS: BP 105/86
--- NOTE | 2023-01-26 07:27 | NUR ---
REPORT GIVEN PT COMFORTABLE IN BED, NO CHANGE IN CONDITION
[2023-01-26 07:55] VITALS: BP 109/74
[2023-01-26 08:26] LABS: BASOPHILS ABSOLUTE AUTO 0.02 K/mm3 (0.00-0.23); BASOPHILS PERCENT AUTO 0 % (0-2); EOSINOPHILS ABSOLUTE AUTO 0.19 K/mm3 (0.00-0.68); EOSINOPHILS PERCENT AUTO 2 % (0-6); Hematocrit 25.9 % (33.0-51.0); Hemoglobin 8.5 g/dL (11.5-16.0); IMMATURE GRAN ABSOLUTE AUTO 0.03 K/mm3 (0.00-0.10); IMMATURE GRAN PERCENT AUTO 0 % (0-1); LYMPHOCYTES ABSOLUTE AUTO 2.08 K/mm3 (0.84-5.20); LYMPHOCYTES PERCENT AUTO 26 % (21-46); MONOCYTES ABSOLUTE AUTO 0.62 K/mm3 (0.16-1.47); MONOCYTES PERCENT AUTO 8 % (4-13); Mean Corpuscular HGB 28.1 pg (26.0-34.0); Mean Corpuscular HGB Conc 32.8 g/dL (31.5-36.5); Mean Corpuscular Volume 86 fL (80-100); Mean Platelet Volume 9.7 fL (9.1-12.4); NEUTROPHILS ABSOLUTE AUTO 5.08 K/mm3 (1.96-9.15); NEUTROPHILS PERCENT AUTO 63 % (41-73); NRBC ABSOLUTE 0.02 K/mm3 (0.00-0.02); NRBC Auto 0.2 /100 WBC (0.0-0.2); Platelet Count 216 K/mm3 (150-400); RDW Coefficient Variation 16.5 % (11.7-14.2); RDW Standard Deviation 51.5 fL (35.1-46.3); Red Blood Cell Count 3.02 M/mm3 (3.80-5.20); White Blood Cell Count 8.02 K/mm3 (4.00-11.30)
[2023-01-26 08:49] LABS: Albumin, Blood 2.9 g/dL (3.4-5.0); Anion Gap 11 mmol/L (6-16); Blood Urea Nitrogen 97 mg/dL (8-24); Bun/Creatinine Ratio 43.7 (12.0-20.0); CO2, Blood 19 mmol/L (21-32); Calcium, Blood 8.8 mg/dL (8.5-10.1); Chloride, Blood 104 mmol/L (98-108); Creatinine, Blood 2.22 mg/dL (0.40-1.00); Glomerular Filtration Rate 21 (60-); Glucose, Blood 158 mg/dL (70-99); Magnesium, Blood 1.9 mg/dL (1.6-2.4); Phosphorus, Blood 4.5 mg/dL (2.5-4.9); Potassium, Blood 3.6 mmol/L (3.5-5.5); Sodium, Blood 134 mmol/L (136-145)
--- NOTE | 2023-01-26 13:51 | NUR ---
PER DR CHARLES, NO COVID TEST TODAY./ PLAN FOR TEST X2 SUNDAY FOR POSS D/CHG
[2023-01-26 15:39] VITALS: BP 82/64
[2023-01-26 17:52] VITALS: BP 97/73
--- NOTE | 2023-01-26 19:04 | NUR ---
PT PLEASNT TODAY. NO C.O PAIN THIS SHIFT. SNF REQUESTIING 2 CLEAR COVID PCR'S PRIOR TO TRANSFER TO SNF. DR TO WAIT TO Sunday TO START TESTING. PLAN FOR D/C TO SNF SUNDAY IF POSSIBLE, NO OTHER CONCERNS NOTED. BED IN LOW POSITION, CALL LITE IN REACH. CALLS APPROP
[2023-01-26 19:27] VITALS: BP 90/54
[2023-01-26 19:29] VITALS: BP 118/77
--- NOTE | 2023-01-27 01:55 | NUR ---
NO CHANGE IN CONDITION OTHER THAN PT FINALLY ASLEEP, LYING COMFORTABLY IN BED WILL RESTRAIN FROM GOING IN RM, PT REQUESTED TO SLEEP.
[2023-01-27 06:01] VITALS: BP 109/75
[2023-01-27 08:01] VITALS: BP 91/70
[2023-01-27 09:11] LABS: Hematocrit 26.1 % (33.0-51.0); Hemoglobin 8.4 g/dL (11.5-16.0); Mean Corpuscular HGB 27.7 pg (26.0-34.0); Mean Corpuscular HGB Conc 32.2 g/dL (31.5-36.5); Mean Corpuscular Volume 86 fL (80-100); Mean Platelet Volume 9.5 fL (9.1-12.4); NRBC ABSOLUTE 0.07 K/mm3 (0.00-0.02); NRBC Auto 0.9 /100 WBC (0.0-0.2); Platelet Count 228 K/mm3 (150-400); RDW Coefficient Variation 16.8 % (11.7-14.2); RDW Standard Deviation 51.8 fL (35.1-46.3); Red Blood Cell Count 3.03 M/mm3 (3.80-5.20); White Blood Cell Count 7.92 K/mm3 (4.00-11.30)
[2023-01-27 09:29] LABS: Bun/Creatinine Ratio 39.1 (12.0-20.0); Calcium, Blood 9.1 mg/dL (8.5-10.1); Creatinine, Blood 2.38 mg/dL (0.40-1.00); Potassium, Blood 3.8 mmol/L (3.5-5.5)
[2023-01-27 13:27] VITALS: BP 106/68
[2023-01-27 15:34] VITALS: BP 96/80
--- NOTE | 2023-01-27 18:30 | NUR ---
SHIFT SUMMARY: ROBIN IS A&OX4. VSS, NO ACUTE EVENTS THIS SHIFT. SHE IS MAINTAINING O2 SATS ORA, TACHYPNEA AND SHALLOW RESPIRATIONS WITH AUXILLARY MUSCLE USE AND EXPIRATORY WHEEZES NOTED. RT EVAL ORDERED. PT DENIES SOB OR LABORED BREATHING AND STATES THAT SHE "MAKES NOISES" WHEN SHE BREATHES AT BASELINE, DENIES COPD. PT REPORTS FEELING WEAK AND IS A 1-2 PERSON ASSIST TO THE BEDSIDE CHAIR. SHE IS TOLERATING PO INTAKE WELL, BUT REPORTS A DECREASED APPETITE. SHE IS SITTING UP AT THE BEDSIDE IN A CHAIR WITH THE CALL LIGHT IN REACH. WCTM UNTIL REPORT IS GIVEN TO MANAGER OF MEDICAL RN.
[2023-01-27 20:16] VITALS: BP 127/97
[2023-01-28 01:36] VITALS: BP 101/77
[2023-01-28 06:04] LABS: BASOPHILS ABSOLUTE AUTO 0.01 K/mm3 (0.00-0.23); BASOPHILS PERCENT AUTO 0 % (0-2); EOSINOPHILS PERCENT AUTO 2 % (0-6); Hematocrit 25.1 % (33.0-51.0); Hemoglobin 8.1 g/dL (11.5-16.0); IMMATURE GRAN ABSOLUTE AUTO 0.04 K/mm3 (0.00-0.10); IMMATURE GRAN PERCENT AUTO 1 % (0-1); LYMPHOCYTES ABSOLUTE AUTO 2.09 K/mm3 (0.84-5.20); LYMPHOCYTES PERCENT AUTO 26 % (21-46); MONOCYTES ABSOLUTE AUTO 0.68 K/mm3 (0.16-1.47); MONOCYTES PERCENT AUTO 8 % (4-13); Mean Corpuscular HGB 27.8 pg (26.0-34.0); Mean Corpuscular HGB Conc 32.3 g/dL (31.5-36.5); Mean Corpuscular Volume 86 fL (80-100); Mean Platelet Volume 9.6 fL (9.1-12.4); NEUTROPHILS ABSOLUTE AUTO 5.16 K/mm3 (1.96-9.15); NEUTROPHILS PERCENT AUTO 63 % (41-73); NRBC ABSOLUTE 0.09 K/mm3 (0.00-0.02); NRBC Auto 1.1 /100 WBC (0.0-0.2); Platelet Count 209 K/mm3 (150-400); RDW Coefficient Variation 17.1 % (11.7-14.2); RDW Standard Deviation 52.1 fL (35.1-46.3); Red Blood Cell Count 2.91 M/mm3 (3.80-5.20); White Blood Cell Count 8.18 K/mm3 (4.00-11.30)
--- NOTE | 2023-01-28 06:10 | NUR ---
SHIFT SUMMARY NO EVENTS OVERNIGHT. PT IN BED RESTING COMFORTABLY. Q1H FIRE SAFETY CHECKS COMPLETED. NO IGNITION SOURCES FOUND.
[2023-01-28 06:29] LABS: Albumin, Blood 2.9 g/dL (3.4-5.0); Albumin/Globulin Ratio 0.9 (0.8-1.8); Bun/Creatinine Ratio 38.1 (12.0-20.0); Creatinine, Blood 2.39 mg/dL (0.40-1.00); Globulin, Blood 3.1 g/dL (2.2-4.0); Potassium, Blood 3.5 mmol/L (3.5-5.5)
[2023-01-28 07:43] VITALS: BP 92/78
--- NOTE | 2023-01-28 15:12 | NUR ---
FOUND PILL IN PT'S BEDCLOTHES WHICH PHARMACY IDENTIFIED CLOPIDOGREL. CALLED AND NOTIFIED HOSPITALIST WHO GAVE ORDER TO GIVE PT A DOSE NOW.
[2023-01-28 16:30] VITALS: BP 105/78
--- NOTE | 2023-01-28 17:11 | NUR ---
SHIFT SUMMARY: ROBIN IS A&OX3, SOME FORGETFULNESS NOTED TODAY (SHE DIDN'T REMEMBER SPEAKING WITH HER THIS MORNING). VSS, NO ACUTE EVENTS THIS SHIFT, MAINTAINING O2 SATS ORA. PUREWICK AND ATTENDS IN PLACE FOR URINARY INCONTINENCE. SHE IS TOLERATING PO INTAKE WELL, POOR APPETITE NOTED. SHE IS ABLE TO TURN AND REPOSITION HERSELF IN BED WITH MINIMAL ASSISTANCE. SHE IS LYING IN BED WITH THE CALL LIGHT IN REACH. WCTM UNTIL REPORT IS GIVEN TO RING MAKING MACHINE OPERATOR RN.
[2023-01-28 19:06] LABS: Influenza A, PCR NEGATIVE (NEGATIVE); Influenza B, PCR NEGATIVE (NEGATIVE); Resp Syncytial Virus, PCR NEGATIVE (NEGATIVE)
[2023-01-28 19:22] LABS: SARS-Cov-2 (COVID-19) PCR, MMC POSITIVE (NEGATIVE)
[2023-01-28 20:14] VITALS: BP 114/89
[2023-01-28 23:49] LABS: Stool Occult Bld Immuno 1 Positive (NEGATIVE)
[2023-01-29] VITALS (7 sets, daily range): BP systolic 87–109; BP diastolic 60–86
[2023-01-29 04:56] LABS: Hematocrit 26.2 % (33.0-51.0); Hemoglobin 8.6 g/dL (11.5-16.0); Mean Corpuscular HGB 28.5 pg (26.0-34.0); Mean Corpuscular HGB Conc 32.8 g/dL (31.5-36.5); Mean Corpuscular Volume 87 fL (80-100); Mean Platelet Volume 9.7 fL (9.1-12.4); NRBC ABSOLUTE 0.13 K/mm3 (0.00-0.02); NRBC Auto 1.6 /100 WBC (0.0-0.2); Platelet Count 204 K/mm3 (150-400); RDW Coefficient Variation 17.7 % (11.7-14.2); RDW Standard Deviation 53.2 fL (35.1-46.3); Red Blood Cell Count 3.02 M/mm3 (3.80-5.20); White Blood Cell Count 8.09 K/mm3 (4.00-11.30)
[2023-01-29 05:27] LABS: Albumin/Globulin Ratio 0.9 (0.8-1.8); Bilirubin, Total 1.1 mg/dL (0.1-1.0); Bun/Creatinine Ratio 37.7 (12.0-20.0); Calcium, Blood 8.9 mg/dL (8.5-10.1); Creatinine, Blood 2.36 mg/dL (0.40-1.00); Globulin, Blood 3.2 g/dL (2.2-4.0); Potassium, Blood 3.4 mmol/L (3.5-5.5); Total Protein, Blood 6.2 g/dL (6.4-8.2)
--- NOTE | 2023-01-29 05:42 | NUR ---
SHIFT SUMMARY PT AWAKE MOST THE NIGHT. ONLY SLEPT FOR A FEW HOURS. PLEASANT & COOPERATIVE WITH CARE AND REPOSITIONING. PURE WIK CHANGED THIS SHIFT. LABS DRAWN VIA INDWELLING LINE. STOOL SENT TO LAB, OCCULT POSITIVE. NO OTHER ACUTE CHANGES IN ASSESSMENT AT THIS TIME. VS REVIEWED. CALL LIGHT IN REACH. DENIES OTHER NEEDS AT THIS TIME.
[2023-01-29 10:47] LABS: Influenza A, PCR NEGATIVE (NEGATIVE); Influenza B, PCR NEGATIVE (NEGATIVE); Resp Syncytial Virus, PCR NEGATIVE (NEGATIVE)
[2023-01-29 10:53] LABS: SARS-Cov-2 (COVID-19) PCR, MMC POSITIVE (NEGATIVE)
--- NOTE | 2023-01-29 15:40 | NUR ---
Joint visit this afternoon with Dr Barahona. Pt resting in bed upon arrival. Pt A&OX3 unable to verbalize specifics regarding hospital stay. Pt appears mildly lethargic and weak. Engaged in therapeutic conversation regarding goals of care including considering hospice. Educated on hospice philosophy. Pt reports not being ready for hospice. Discussed other options such as [facility] (Palliative Care) out Pt. Pt does not respond to this option. Pt states she is wanting to go home. She does make a couple of statements that appear to be non sensical. 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 Ended visit to allow Pt to rest. Called and spoke with Pt's Demond. Provided update and relayed information discussed with Pt. Educated on hospice philosophy and instructed this option will be available for Pt at any time. Demond reports hopefullness that SNF can assist with getting her stregnth back to baseline as he struggles with caring for Pt in current condition. Gentle education on disease process including trajectory. Demond expresses appreciation and reports no other concerns at this time. Palliative Care will remain available
--- NOTE | 2023-01-29 18:35 | NUR ---
PATIENT IS ALERT AND ORIENTED BUT FORGETFUL AND A POOR HISTORIAN AND COOPERATIVE WITH CARE. ON RA. WHEEZING NOTED IN UPPER LUNG ARCHER. PATIENT HAS BEEN OOB FOR ALL MEALS TODAY. SHE WORKED WITH PT AND OT. TIRES QUICKLY. PALLIATIVE CARE SPOKE WITH THE PATIENT AND HER ABOUT HOSPICE WHICH THEY SEEM TO HAVE DECLINED AT THIS TIME. PUREWICK IN PLACE WHILE THE PATIENT IS IN BED AND REMOVED WHEN SHES UP IN THE CHAIR. WILL CONTINUE TO MONITOR
--- NOTE | 2023-01-29 20:47 | NUR ---
HYPOTENSION/PHYSICIAN CONTACT PT BP 87/76 HR AT 113. PT RUNNING SBP IN THE 90S ON DAY SHIFT. DR FRZAIER NOTFIED. OT DOSE OF MIDODRINE ORDERED.
[2023-01-30 05:13] VITALS: BP 112/84
--- NOTE | 2023-01-30 06:11 | NUR ---
SHIFT SUMMARY PT HYPOTENSIVE AT THE START OF SHIFT WITH A BP OF 87/76. SEE NOTE. ONE TIME DOSE OF MIDODRINE GIVEN ORDERED. LAST BP IMPROVED TO 112/84. PT GIVEN MELATONIN AT START OF THE SHIFT. THIS SEEMED TO HELP WITH OVERALL SLEEP COMPARED TO THE NIGHT BEFORE. PT DENIES PAIN T/O SHIFT. PT CANNOT BE MOVED TO SNF UNTIL 10 DAYS OF QUARENTINE ARE COMPLETED. THIS ENDS ON 02/04/23. PURE WIK IN PLACE FOR INCONTINENCE T/O THE NIGHT. PLEASANT & COOPERATIVE T/O SHIFT. NO OTHER ACUTE CHANGES IN ASSESSMENT AT THIS TIME. CALL LIGHT IN REACH. DENIES OTHER NEEDS AT THIS TIME.
[2023-01-30 08:00] VITALS: BP 88/75
[2023-01-30 12:15] VITALS: BP 94/71
--- NOTE | 2023-01-30 15:00 | NUR ---
SHIFT SUMMARY PT RESTING QUIETLY AT START OF SHIFT. PT ASSISTED UP TO CHAIR FOR BREAKFAST. BACK TO BED AND UP TO CHAIR THRU OUT THE DAY. ABLE TO WORK WITH THERAPY. PT IS VERY WEAK AND MOVES VERY SLOWLY, BUT ABLE TO ANS QUESTIONS AND FOLLOW DIRECTIONS. DR GAYLE AND DR ALLEN BOTH IN TO SEE PT THIS AM AND LATER TODAY. PALLIATIVE CARE IN TO TALK WITH PT AFTER DR ALLEN. PT DECIDING TO GO HOME ON HOSPICE. PALLIATIVE CARE RN TO CALL AND THEN ALSO DAUGHTER AND SON. MIDODRINE GIVEN THRU OUT THE DAY. METOPROLOL HELD THIS AM UNTIL AFTER MIDODRINE EFFECTIVE. NEW ORDERS PLACED WITH PARAMETERS FOR METOPROLOL. PT INCONTINENT OF LRG BM EARLIER TODAY; CLEANED AND CHANGED. RESTING QUIETLY AT THIS TIME. NO C/O. CALL LT IN REACH.
[2023-01-30 15:08] VITALS: BP 92/77
--- NOTE | 2023-01-30 15:42 | NUR ---
Spoke with Dr Davalos and discussed case. Hospice was discussed with Pt today and may benefit from further conversation as she appears to be leaning this direction. Pt resting in bed and appears weak and frail. Engaged in therapeutic conversation regarding goals of care. Discussed hospice with Pt reporting hospice is her goal. She states she would like to go home and focus on comfort. Offered therapeutic listening and answered questions. She would like her involved with this decision as well. Received verbal permission from Pt to obtain daughter and son's phone numbers from her smart phone. Called and left a message with Pt's Demond with a request for a return phone call. Called and spoke with Pt's daughter Sabrina Umana. Provided update and Pt wishes for hospice. She reports inability to come up from [place] to assist with care as she is the medical/surgery registered nurse for several children. She alos reports Pt's son Damir is a cone trucker and would not be able to provide any assistance. Sabrina reports Pt and her spouse have saved some money and spouse might be able to pay for caregiver support. Spoke with RN Parking Lot Signaler and relayed information. Daughter Sabrina [phone] Son Damir [phone] Palliative Care will remain available
--- NOTE | 2023-01-30 16:16 | NUR ---
Received call back from Pt's spouse Demond. Discussed Pt's goal to go home with hospice. Offered therapeutic listening as Demond expresses concerns regarding his ability to care for Pt and validated concerns. Suggested considering higher caregivers to assist with care. Demond is requesting a list of phone numbers for caregiver agencies. Instructed that RN Electrical Equipment Assembler will call with a list. Demond appears to be in agreement with hospice services and reports no preference in hospice agencies. Relayed information to BHUMI Peña. Care Coordinators will call hospice agencies and call spouse Demond with caregiver agencies. Palliative Care will remain available
[2023-01-30 20:19] VITALS: BP 91/70
--- NOTE | 2023-01-31 04:50 | NUR ---
REPORT RECEIVED VERIFIED, PT UP IN CHAIR REQUESTING TO GO BACK TO BED, TRANSFERED WELL, NO C/O PAIN NO DISTRESS, PT TO GO HOME WITH PALLATIVE CARE, IM UNSURE HOW AWARE SHE IS OF THIS, PT SEEMS VERY UNMOTIVATED AND HAS A VERY FLAT AFFECT. PT QUICKLY FELL ASLEEP AND SLEPT VERY WELL THROUGHOUT THE NIGHT, NO C/O PAIN NO DISTRESS CONT TO MONITOR PT.
[2023-01-31 06:14] VITALS: BP 93/77
--- NOTE | 2023-01-31 07:30 | NUR ---
ASSUMED CARE: PT RESTING QUIETLY IN BED AT THIS TIME. ON RA. DENIES NEEDS OR CONCERNS AT THIS TIME.
[2023-01-31 07:44] VITALS: BP 100/76
[2023-01-31 12:46] VITALS: BP 98/42
[2023-01-31 15:37] VITALS: BP 119/78
--- NOTE | 2023-01-31 18:35 | NUR ---
SHIFT SUMMARY: PT WORKED WITH PT/OT THIS SHIFT. VERY LITTLE MOTIVATION, HAS STRENGTH FOR AMBULATION WITH ONE ASSIST. PLANS FOR DC ON HOSPICE ONCE PLACEMENT CAN BE ARRANGED. FAMILY CAME TO VISIT THIS SHIFT. DENIES OTHER NEEDS OR CONCERNS.
[2023-01-31 19:08] VITALS: BP 98/80
[2023-02-01 03:46] VITALS: BP 98/81
--- NOTE | 2023-02-01 05:18 | NUR ---
SHIFT SUMMARY- PT HAS HAD NO ACUTE CHANGE. PT IN BED CALL LIGHT IN REACH NO S&S OF DISTRESS NOTED.
[2023-02-01 05:19] LABS: Bun/Creatinine Ratio 34.8 (12.0-20.0); Calcium, Blood 8.4 mg/dL (8.5-10.1); Creatinine, Blood 2.24 mg/dL (0.40-1.00); Potassium, Blood 3.6 mmol/L (3.5-5.5)
--- NOTE | 2023-02-01 07:30 | NUR ---
ASSUMED CARE: PT RESTING QUIETLY AT THIS TIME. FERRY BOAT CAPTAIN AT BEDSIDE. NO ACUTE NEEDS OR CONCERNS.
[2023-02-01 07:43] VITALS: BP 97/72
[2023-02-01 11:30] VITALS: BP 98/48
[2023-02-01 15:38] VITALS: BP 95/83
--- NOTE | 2023-02-01 18:48 | NUR ---
SHIFT SUMMARY: PT'S GRANDSON CAME TO VISIT AND BROUGHT HER FOOD THAT SHE ATE A LARGE AMOUNT OF. AWAITING 10 DAYS FOR COVID CLEARANCE IN ORDER TO DISCHARGE ON HOSPICE. NO FURTHER NEEDS OR CONCERNS AT THIS TIME.
[2023-02-01 21:06] VITALS: BP 83/68
[2023-02-01 21:15] VITALS: BP 90/70
--- NOTE | 2023-02-02 04:26 | NUR ---
SHIFT SUMMARY PT IS A&O2-3, BEDREST THIS SHIFT DUE TO WEAKNESS PURIWICK IN PLACE, RA, BP;S HAVE BEEN SOFT THIS SHIFT, NO COMPLAINTS OF PAIN OVERNIGHT, CONTINUE POC
[2023-02-02 08:26] VITALS: BP 95/76
[2023-02-02 17:02] VITALS: BP 91/75
--- NOTE | 2023-02-02 17:10 | NUR ---
SHIFT SUMMARY NO ACUTE CHANGES THIS SHIFT. FAMILY BROUGHT PT DINNER AND IS VISITING WITH HER NOW. PT IS ALERT AND ORIENTEDX4 R/A. 2 PERSON ASSIST TO BEDSIDE COMMODE. PT DENIES PAIN AND SOB.
--- NOTE | 2023-02-02 18:10 | NUR ---
PT HAS BEEN TACHYCARDIC WITH SOFT BP THIS SHIFT. DR. RAY NOTIFIED
[2023-02-02 20:16] VITALS: BP 88/69
--- NOTE | 2023-02-03 05:19 | NUR ---
SHIFT SUMMARY PT IS A&O4, 2 PERSON ASSIST TO BSC, INCONTINENT OF URINE PURIWICK IN PLACE OVERNIGHT, RA, VSS, NO COMPLAINTS OF PAIN OR DISCOMFORT OR ACUTE OVERNIGHT EVENTS, CONTINUE POC
[2023-02-03 08:01] VITALS: BP 88/71
[2023-02-03 10:07] LABS: Albumin, Blood 2.8 g/dL (3.4-5.0); Albumin/Globulin Ratio 0.9 (0.8-1.8); Bilirubin, Total 1.5 mg/dL (0.1-1.0); Bun/Creatinine Ratio 34.4 (12.0-20.0); Calcium, Blood 8.5 mg/dL (8.5-10.1); Creatinine, Blood 1.89 mg/dL (0.40-1.00); Globulin, Blood 3.1 g/dL (2.2-4.0); Potassium, Blood 3.5 mmol/L (3.5-5.5); Total Protein, Blood 5.9 g/dL (6.4-8.2)
[2023-02-03 15:37] VITALS: BP 132/57
--- NOTE | 2023-02-03 16:08 | NUR ---
SHIFT SUMMARY ALERT AND ORIENTED X3-4 SOME CONFUSION. OR UNWILLINGNESS TO ENGAGE IN CONVERSATION. FLAT AFFECT TODAY. FAMILY CAME BY TO VISIT AND BRING DINNER. NO CHANGES THIS SHIFT.
--- NOTE | 2023-02-03 18:03 | NUR ---
treated pt cbg per emar. pt family brought in [facility] for dinner. education provided on importance of following recommended ada diet.
[2023-02-03 20:06] VITALS: BP 93/80
[2023-02-04 03:53] VITALS: BP 82/64
--- NOTE | 2023-02-04 04:13 | NUR ---
PATIENT A/OX3, FORGETFUL. SLEPT WELL THIS SHIFT. COVID POSITIVE, CONTINUES ON ENHANCED PRECAUTIONS. B/P 82/64 THIS AM, DR SALAMANCA NOTIFIED AND 500ML BOLUS ORDERED AND INSTRUCTED TO GIVEN MORNING DOSE OF MIDODRINE EARLY. PATIENT INCONTINENT, PUREWICK IN PLACE. SKIN INTACT. AWAITING TRANSFER TO SNF WHEN COVID PRECAUTIONS D/C'D.
[2023-02-04 05:36] VITALS: BP 91/69
[2023-02-04 07:52] VITALS: BP 95/70
[2023-02-04 09:09] LABS: Albumin, Blood 2.8 g/dL (3.4-5.0); Albumin/Globulin Ratio 0.9 (0.8-1.8); Bilirubin, Total 1.4 mg/dL (0.1-1.0); Bun/Creatinine Ratio 31.7 (12.0-20.0); Calcium, Blood 8.1 mg/dL (8.5-10.1); Creatinine, Blood 1.8 mg/dL (0.40-1.00); Globulin, Blood 3.1 g/dL (2.2-4.0); Potassium, Blood 3.6 mmol/L (3.5-5.5); Total Protein, Blood 5.9 g/dL (6.4-8.2)
[2023-02-04 17:04] VITALS: BP 158/92
--- NOTE | 2023-02-04 18:02 | NUR ---
SHIFT SUMMARY PT IS ALERT AND ORIENTEDX4. NO CHANGES THIS SHIFT. INCONT OF URINE. PURWICK IN PLACE. XLARGE BM THIS MORNING. FLAT AFFECT. TREATED CBG PER EMAR. LAST DAY OF ISOLATION PER CHART NOTES. BEDREST. CALL LIGHT IN REACH. BED IN LOWEST POSTITION.
[2023-02-04 20:18] VITALS: BP 81/41
[2023-02-05 03:37] VITALS: BP 81/67
[2023-02-05 06:33] LABS: Hematocrit 29.7 % (33.0-51.0); Hemoglobin 9.4 g/dL (11.5-16.0)
[2023-02-05 06:56] LABS: Albumin, Blood 2.9 g/dL (3.4-5.0); Albumin/Globulin Ratio 0.9 (0.8-1.8); Bilirubin, Total 1.6 mg/dL (0.1-1.0); Calcium, Blood 8.5 mg/dL (8.5-10.1); Creatinine, Blood 1.74 mg/dL (0.40-1.00); Globulin, Blood 3.2 g/dL (2.2-4.0); Potassium, Blood 3.5 mmol/L (3.5-5.5); Total Protein, Blood 6.1 g/dL (6.4-8.2)
[2023-02-05 07:46] VITALS: BP 120/89
--- NOTE | 2023-02-05 07:51 | NUR ---
SUMMARY PT WITH FLAT AFFECT THIS SHIFT.NO ACUTE CHANGES.PLANS FOR DISCHARGE ON HOSPICE WHEN ARRANGEMENTS CAN BE MADE.
[2023-02-05 15:51] VITALS: BP 135/91
--- NOTE | 2023-02-05 16:41 | NUR ---
SHIFT SUMMARY: PT A&O X3-4 THIS SHIFT. PT PLEASANT AND COOPERATIVE WITH CARE. NO ACUTE CHANGES THIS SHIFT. PT WORKED WITH PHYSICAL THERAPY THIS SHIFT. NO IV ACCESS ORDER PROVIDED THIS AM DUE TO PULLING OF POWERGLIDE. PT DOES NOT TAKE ANY IV MEDICATIONS. PLAN FOR ADULT FOSTER HOME PLACEMENT. ONLY COMPLAINT FROM PT IS BOREDOM. CALL LIGHT IN REACH. BED IN LOWEST POSITION. BED ALARM ON. WILL CONTINUE TO MONITOR.
[2023-02-05 19:29] VITALS: BP 134/71
[2023-02-06] VITALS (8 sets, daily range): BP systolic 92–151; BP diastolic 70–91
--- NOTE | 2023-02-06 04:27 | NUR ---
PATIENT A/OX4, BEDREST THIS SHIFT DUE TO TREMORS AND WEAKNESS. PATIENT IN BETTER SPIRITS TONIGHT, FEELS SHE IS IMPROVING. APPETITE IMPROVING. DENIES ANY PAIN OR DISCIMFORT. PUREWICK IN PLACE, ADEQUATE U/O. VSS, ON RA. SKIN INTACT. STOOL SAMPLE NEEDED, NO BM THIS SHIFT. SPEECH REMAINS SLOW AND PATIENT CONTINUES TO HAVE DIFFICULTY WITH WORD FINDING AT TIMES. PLAN IS SNF AAT D/C PER NOTES.
--- NOTE | 2023-02-06 04:38 | NUR ---
NO ACUTE CHANGES OVERNIGHT. A/OX3-4, UP WITH 1 ASSIST TO CHAIR PER REPORT. VSS, ON RA. DENIES ANY PAIN OR DISCOMFORT. INCONTINENT, PUREWICK IN PLACE. PATIENT NOT SLEEPING WELL AT NIGHT, DESPITE MELATONIN SHE WAS UP MOST OF THE SHIFT. LARGE AREAS OF BRUISING TO THIGHS AND BACK. AWAITING PLACEMENT AT AN [facility].
[2023-02-06 05:49] LABS: BASOPHILS ABSOLUTE AUTO 0.04 K/mm3 (0.00-0.23); BASOPHILS PERCENT AUTO 1 % (0-2); EOSINOPHILS ABSOLUTE AUTO 0.22 K/mm3 (0.00-0.68); EOSINOPHILS PERCENT AUTO 3 % (0-6); Hemoglobin 9.3 g/dL (11.5-16.0); IMMATURE GRAN ABSOLUTE AUTO 0.02 K/mm3 (0.00-0.10); IMMATURE GRAN PERCENT AUTO 0 % (0-1); LYMPHOCYTES ABSOLUTE AUTO 2.12 K/mm3 (0.84-5.20); LYMPHOCYTES PERCENT AUTO 30 % (21-46); MONOCYTES ABSOLUTE AUTO 0.62 K/mm3 (0.16-1.47); MONOCYTES PERCENT AUTO 9 % (4-13); Mean Corpuscular HGB 27.2 pg (26.0-34.0); Mean Corpuscular Volume 88 fL (80-100); Mean Platelet Volume 10.3 fL (9.1-12.4); NEUTROPHILS PERCENT AUTO 58 % (41-73); NRBC ABSOLUTE 0.03 K/mm3 (0.00-0.02); NRBC Auto 0.4 /100 WBC (0.0-0.2); Platelet Count 204 K/mm3 (150-400); RDW Coefficient Variation 19.1 % (11.7-14.2); RDW Standard Deviation 60.3 fL (35.1-46.3); Red Blood Cell Count 3.42 M/mm3 (3.80-5.20); White Blood Cell Count 7.12 K/mm3 (4.00-11.30)
[2023-02-06 06:46] LABS: Albumin, Blood 2.8 g/dL (3.4-5.0); Albumin/Globulin Ratio 0.9 (0.8-1.8); Bilirubin, Total 1.6 mg/dL (0.1-1.0); Bun/Creatinine Ratio 29.7 (12.0-20.0); Calcium, Blood 8.3 mg/dL (8.5-10.1); Creatinine, Blood 1.75 mg/dL (0.40-1.00); Globulin, Blood 3.2 g/dL (2.2-4.0); Potassium, Blood 3.6 mmol/L (3.5-5.5)
--- NOTE | 2023-02-06 11:25 | NUR ---
Brief supportive visit this AM. Pt sitting in chair and denies pain, anxiety, and dyspnea. Pt reports being tired, sleepy, and struggled with sleeping last night. Pt reports no concerns at this time. Spoke with Primary RN Selina Nicholson from PT, and OT Eleanor. Discussed case and concerns. Pt showing little interest or motivation to work with therapy. Spoke with Dr Anthony and discussed case. Placed order for Trazodone 25 mg by mouth at bedtime as needed for insomnia, D/C PT, OT per V/O from Dr Anthony. Palliative Care will remain available.
--- NOTE | 2023-02-06 14:17 | NUR ---
DR LAGUERRE PT'S BP WAS 92/78 AT 1220. MIDODRINE GIVEN. AT 1400, BP WAS 96/78 IN R ARM AND 139/[address] GAYLE ASKED FOR A RECHECK AT 1500 AND TO NOTIFY. 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 NALINI ORDERED TO COVER WITH PRESSURE DRESSING OR MEPILEX FOR PROTECTION.
--- NOTE | 2023-02-06 16:43 | NUR ---
SHIFT SUMMARY PATIENT ORIENTED TO SELF AND PLACE, THOUGH UNSURE WHY SHE IS HERE. SLEEPY T/O SHIFT. DENIES CP, HEADACHE, DIZZINESS, OR SOB. SOFT BP'S NOTED, MIDODRINE ADMINISTERED PER EMAR PROTOCOL. DIFFERENCES IN BP NOTED BETWEEN LEFT AND RIGHT ARMS. NOTIFIED DR. COVERED PRESSURE SORES ON COCCYX AND INNER BUTTOCK WITH BARRIER CREAM AND MEPILEX PER DR ORDER. PATIENT USING A PUREWICK. LBM THIS MORNING. NO COMPLAINTS OF PAIN DURING SHIFT. NO ACUTE CHANGES THIS SHIFT. PATIENT HAD FAMILY AND FRIENDS VISITING THROUGHOUT THE DAY. CURRENTLY IN BED RESTING. BED ALARM ON, CALL LIGHT WITHIN REACH.
--- NOTE | 2023-02-07 04:46 | NUR ---
SHIFT SUMMARY ROBIN WAS ALERT AT THE START OF THE SHIFT AND ORIENTED TO SELF AND LOCATION. SHE HAS A FLAT AND DISINTERESTED AFFECT, BUT WAS PLEASANT AND COOPERATIVE. NO ACUTE CHANGES IN CONDITION OVER THE NIGHT, SHE SLEPT OFF AND ON THROUGH THE SHIFT. THE PATIENT IS RESTING IN BED AT THIS TIME WITH THE BED LOWERED, CALL LIGHT IN REACH, AND BED ALARM IN PLACE.
[2023-02-07 05:04] VITALS: BP 140/85
--- NOTE | 2023-02-07 05:08 | NUR ---
THIS FAMILY SERVICES WORKER HAS REVIEWED AND AGREES WITH ALL NOTES AND ASSESSMENTS BY RAJ FREEMAN.
[2023-02-07 07:12] VITALS: BP 135/73
[2023-02-07] MEDS ORDERED: DOCU100 PO (13:19)
[2023-02-07] MEDS ORDERED: PROTONIX40 M1 PO (13:19)
[2023-02-07] MEDS ORDERED: MELA3 PO (13:20)
[2023-02-07] MEDS ORDERED: DULCOLAX400 MG/5 M PO (13:20)
[2023-02-07] MEDS ORDERED: TRAZ50 PO (13:21)
[2023-02-07] MEDS ORDERED: MIDO5 PO (13:21)
[2023-02-07] MEDS ORDERED: SODCHL1 PO (13:21)
[2023-02-07 15:21] VITALS: BP 126/79
--- NOTE | 2023-02-07 17:35 | NUR ---
DAYSHIFT SUMMARY Patient alert & oriented x2-3. Vitals stable, CBGs WNL, 4u insulin given at lunch time. Plan to discharge on hospice to [facility] today. Report given to charge nurse, patient left unit at 1700.
== END 2023-02-07 16:53 | disposition hospice, home (50) | DRG 640 ==
LOC: ER 08:42 → MEDS 08:43 → ENPENDDIS 02-07 11:43 → MEDS 02-07 16:53
PROVIDERS: Emergency Medicine; Family Medicine; Internal Medicine; Student in an Organized Health Care Education/Training Program; ADMIT Internal Medicine
PROC: 8E0ZXY6 Isolation (ICD-10-PCS; principal; 2023-01-23)
DX: E87.1 Hypo-osmolality and hyponatremia (principal); G93.41 Metabolic encephalopathy; U07.1 COVID-19; N39.0 Urinary tract infection, site not specified; I50.22 Chronic systolic (congestive) heart failure; I13.0 Hypertensive heart and chronic kidney disease with heart failure and stage 1 through stage 4 chronic kidney disease, or unspecified chronic kidney disease; N18.4 Chronic kidney disease, stage 4 (severe); I48.20 Chronic atrial fibrillation, unspecified; Z66 Do not resuscitate; Z51.5 Encounter for palliative care; E87.6 Hypokalemia; R54 Age-related physical debility; I95.9 Hypotension, unspecified; R32 Unspecified urinary incontinence; E86.0 Dehydration; T50.1X5A Adverse effect of loop [high-ceiling] diuretics, initial encounter; B95.2 Enterococcus as the cause of diseases classified elsewhere; D50.9 Iron deficiency anemia, unspecified; L89.152 Pressure ulcer of sacral region, stage 2; E11.22 Type 2 diabetes mellitus with diabetic chronic kidney disease; D63.1 Anemia in chronic kidney disease; J44.9 Chronic obstructive pulmonary disease, unspecified; E78.5 Hyperlipidemia, unspecified; K21.9 Gastro-esophageal reflux disease without esophagitis; I25.10 Atherosclerotic heart disease of native coronary artery without angina pectoris; Z95.5 Presence of coronary angioplasty implant and graft; Z88.7 Allergy status to serum and vaccine; Z88.2 Allergy status to sulfonamides; Z79.899 Other long term (current) drug therapy; Z79.01 Long term (current) use of anticoagulants; Z99.81 Dependence on supplemental oxygen; Z79.4 Long term (current) use of insulin; Z87.19 Personal history of other diseases of the digestive system
CPT/HCPCS: 0241U; 36415; 71045; 80048; 80053; 80069; 81001; 82274; 82728; 82947; 83540; 83550; 83735; 84443; 85014; 85018; 85025; 85027; 87077; 87086; 87186; 93005; 93010; 94760; 96365; 96366; 96367; 96376; 97110; 97112; 97162; 97166; 97530; 97535; 99285-25; A9270; C1751; G0378; J0290; J0696; J1815; J3480; J7030; J7040